=== PATIENT | female | born 1940 | race Caucasian/White ===

== ENCOUNTER 2019-11-29 15:34 | Inpatient (IN) | payer MEDICARE, OTHER ==
[~2019-11-29] VITALS: Ht 175.3 cm; Wt 131.1 kg
[2019-11-29] VITALS (12 sets, daily range): BP systolic 119–145; BP diastolic 57–68
--- NOTE | 2019-11-29 15:47 | NUR ---
BIB [facility] (PATIENT FROM [facility]) FOR RAPID HEART RATE. TO ER BED 8, HOOKED TO TELEVISION ENGINEER, BP CUFF AND POX, NOTED WITH 156BPM ON A-FFIB W RVR. CHANGED TO HOSP GOWN, WARM BLANKET PROVIDED, PATIENT AAO x 0, RESP THERAPIST AT BEDSIDE. NOTED W TRACHEOSTOMY VENT DEPENDENT W SETTINGS OF AC 14, O2 40% PEEP 5, VT 500. NOTED W G-TUBE AND PEG TUBE. NOTED W BUE AND BLE EDEMA. NOTED WITH BUE PURPLE-RED DISCOLORATIONS AND BLE WOUNDS. DR CAN AT BEDSIDE Addendum: 11/29/19 at 1813 by GLYNN [facility] (PATIENT FROM [facility]) FOR RAPID HEART RATE. TO ER BED 8, HOOKED TO TELEVISION ENGINEER, BP CUFF AND POX, NOTED WITH 156BPM ON V-TACH. CHANGED TO HOSP GOWN, WARM BLANKET PROVIDED, PATIENT AAO x 0, RESP THERAPIST AT BEDSIDE. NOTED W TRACHEOSTOMY VENT DEPENDENT W SETTINGS OF AC 14, O2 40% PEEP 5, VT 500. NOTED W G-TUBE AND GARRETT CATHETER. NOTED W BUE AND BLE EDEMA. NOTED WITH BUE PURPLE-RED DISCOLORATIONS AND BLE WOUNDS. DR CAN AT BEDSIDE
--- NOTE | 2019-11-29 15:48 | NUR ---
PATIENT ON DIALYSIS DURING MON-MON-MON. DIDN'T HAVE DIALYSIS FOR TODAY.
--- NOTE | 2019-11-29 15:54 | NUR ---
RT NOTE PT PLACED ON VENT PER MD ORDER. PT HAS A SHILEY 6 DCT CUFFED TRACH TUBE IN PLACE. CUFF INFLATED. TRACH TUBE MIDLINE AND SECURE. VENTILATOR SETTINGS ENDORSED BY TRANSPORT RT. ALARMS SET PER PROTOCOL AND AUDIBLE. VENT PLUGGED IN TO RED OUTLET. AMBU BAG AND BACK UP TRACH AT BED SIDE. NO DISTRESS NOTED AT MOMENT. Addendum: 11/29/19 at 1557 by AMIE ANDRES RT Amended: Links added.
--- NOTE | 2019-11-29 16:16 | NUR ---
FOREIGN LANGUAGES DEPARTMENT CHAIR AT BEDSIDE FOR RVR
--- NOTE | 2019-11-29 16:21 | NUR ---
INOCENCIA NEWSOME AT BEDSIDE FOR EKG
[2019-11-29 16:22] LABS: BASOPHILS # (AUTO) 0.1 /CMM (0.0-0.2); BASOPHILS % (AUTO) 0.6 % (0.0-2.0); EOSINOPHILS % (AUTO) 2.9 % (0.0-6.0); HEMATOCRIT 31 % (33-45); HEMOGLOBIN 9.8 g/dL (11.5-14.8); LYMPHOCYTES # (AUTO) 0.6 /CMM (0.8-4.8); LYMPHOCYTES % (AUTO) 4.1 % (20.0-44.0); MEAN CORPUSCULAR HGB CONC 32 g/dl (31.0-36.0); MEAN CORPUSCULAR VOLUME 93 fL (82-100); MONOCYTES # (AUTO) 1.4 /CMM (0.1-1.30); MONOCYTES % (AUTO) 9.7 % (2.0-12.0); NEUTROPHILS # (AUTO) 11.7 /CMM (1.8-8.9); NEUTROPHILS % (AUTO) 82.7 % (43.0-81.0); PLATELET COUNT (AUTO) 260 /CMM (150-450); RED BLOOD CELL COUNT(AUTO) 3.29 MIL/uL (4.0-5.2); WHITE BLOOD COUNT (AUTO) 14.2 K/uL (4.3-11.0)
[2019-11-29] MEDS ORDERED: ZINC1CAP2 GT (16:23)
[2019-11-29] MEDS ORDERED: LINA5TAB GT (16:23)
[2019-11-29] MEDS ORDERED: CLOT15CR27 TP (16:23)
[2019-11-29] MEDS ORDERED: HYDR-4384 GT (16:23)
[2019-11-29] MEDS ORDERED: LANO3.5O3 EACHEYE (16:23)
[2019-11-29] MEDS ORDERED: FOLI0.8T23 GT (16:23)
[2019-11-29] MEDS ORDERED: MUPI22OI2 TP (16:23)
[2019-11-29] MEDS ORDERED: PANT40TA2 GT (16:23)
[2019-11-29] MEDS ORDERED: EPOE4000 SQ (16:23)
[2019-11-29] MEDS ORDERED: DOCU50LI GT (16:23)
[2019-11-29] MEDS ORDERED: INSU100V11 SQ (16:23)
[2019-11-29] MEDS ORDERED: NYST15PO4 TP (16:23)
[2019-11-29] MEDS ORDERED: METO-295 GT (16:23)
[2019-11-29] MEDS ORDERED: ACET650S26 GT ×2 (16:23)
[2019-11-29] MEDS ORDERED: METO25TA20 GT (16:23)
[2019-11-29] MEDS ORDERED: ARGI1POW13 GT (16:23)
[2019-11-29] MEDS ORDERED: MIDO10TA GT (16:23)
[2019-11-29] MEDS ORDERED: ASCO-352 GT (16:23)
[2019-11-29] MEDS ORDERED: NUT.237L67 GT (16:23)
[2019-11-29] MEDS ORDERED: INSU100V7 SQ (16:23)
[2019-11-29] MEDS ORDERED: AMIN30LI27 GT (16:23)
[2019-11-29] MEDS ORDERED: LEVO150T8 GT (16:23)
[2019-11-29] MEDS ORDERED: BISA10SU11 RC (16:23)
[2019-11-29] MEDS ORDERED: SILD20TA2 GT (16:23)
[2019-11-29] MEDS ORDERED: CHLO473M5 MM (16:23)
[2019-11-29] MEDS ORDERED: AMIO400T5 GT (16:23)
[2019-11-29] MEDS ORDERED: DILTIAZEM HCL 25 MG IV ONE ×2 (16:24→17:38)
--- NOTE | 2019-11-29 16:24 | NUR ---
RECEIVED VERBAL ORDER OF CARDIZEM 10MG IVP. CARRIED OUT
[2019-11-29] MEDS ORDERED: AMIODARONE 150 MG in IV D5W 100 ML IV ONE (16:30)
[2019-11-29] MEDS ORDERED: DILTIAZEM HCL 50 MG IV IV ONE ×2 (16:30→17:00)
--- NOTE | 2019-11-29 16:30 | NUR ---
FRAME CLEANER AT BEDSIDE FOR 2ND EKG
[2019-11-29 16:40] LABS: CALCIUM, SERUM 10.5 mg/dL (8.5-10.1); CARBON DIOXIDE 26 mmol/L (21-32); CHLORIDE 99 mmol/L (98-107); GLUCOSE 175 mg/dL (74-106); POTASSIUM 3.5 mmol/L (3.5-5.1); SODIUM SERUM 137 mmol/L (136-145); UREA NITROGEN, BLOOD 49 mg/dL (7-18)
[2019-11-29 16:52] LABS: ALANINE AMINOTRANSFERASE 11 U/L (12-78); ALBUMIN 2.1 g/dL (3.4-5.0); ALKALINE PHOSPHATASE 152 U/L (46-116); ASPARTATE AMINOTRANSFERASE 22 U/L (15-37); B-TYPE NATRIURETIC PEPTIDE 26660 PG/ML (0-125); BILIRUBIN,DIRECT 0.3 mg/dL (0.0-0.2); BILIRUBIN,TOTAL 0.6 mg/dL (0.2-1.0); TOTAL PROTEIN, SERUM 7.2 g/dL (6.4-8.2)
[2019-11-29] MEDS: AMIODARONE 450 MG in IV D5W 250 ML IV PRN (17:00)
--- NOTE | 2019-11-29 17:18 | NUR ---
PAGED EPIC NURSERY MANAGER.
--- NOTE | 2019-11-29 17:28 | NUR ---
CALLED NURSING SUP FOR ICU BED.
--- NOTE | 2019-11-29 17:33 | NUR ---
NURSING SUP GAVE ICU BED 261.
--- NOTE | 2019-11-29 18:16 | NUR ---
REPORT GIVEN TO LARY JERONIMO OF ICU
[2019-11-29] MEDS ORDERED: FUROSEMIDE 40 MG/4 ML VIAL IV ONE (18:30)
[2019-11-29] MEDS: NORMAL SALINE FLUSH 10 ML SYR IV SCH (19:14)
--- NOTE | 2019-11-29 19:30 | NUR ---
BUSINESS SOLUTION ANALYST RCD PT W/DX VTACH. RESP FAIL. PT IS NON RESPONSIVE. AFIB ON MONITOR W/AMIODARONE DRIP INFUSING 1 MG/MIN. SHILEY 6 W/VENT SETTINGS AC 14 500 405 +5. RENDERED ORAL CARE. GTUBE CLAMPED. GARRETT CAT DRAINING CLOUDY YELLOW URINE. PENDING ICU ADMISSION AND SKIN ASSESSMENT. CONTINUE TO MONITOR.
[2019-11-29] MEDS ORDERED: ACETAMINOPHEN 650 MG/20.3 ML UDC GT PRN (20:30)
[2019-11-29] MEDS ORDERED: BISACODYL SUPP (10 MG) 10 MG/SUPP.RECT SUPP.RECT RC PRN (20:30)
[2019-11-29] MEDS ORDERED: DEXTROSE 50%-WATER 50 ML DISP.SYRIN IV PRN (20:30)
--- NOTE | 2019-11-29 21:10 | NUR ---
MEDIA OPERATOR RCD CALL FROM [facility] APPLIED TECHNOLOGIST UPDATED ON PLAN OF CARE; EKG TO BE DONE AFTER AMIODARONE INFUSION IS COMPLETE.
[2019-11-29] MEDS: LANOLIN/MIN OIL/PETROLAT,WHT 3.5 GM TUBE EACHEYE SCH (21:32)
[2019-11-29] MEDS: CHLORHEXIDINE GLUCONATE 15 ML UDC MM SCH (21:32)
[2019-11-29] MEDS: METOPROLOL TARTRATE 25 MG TABLET GT SCH (21:32)
--- NOTE | 2019-11-29 22:00 | NUR ---
POSTAL SERVICE MAIL PROCESSOR RCD CALL FROM PTS DAUGHTER BRANDY, UPDATED ON PLAN OF CARE.
[2019-11-29] MEDS: INSULIN GLARGINE, 100 UNIT/ML CARTRIDGE SQ SCH (22:32)
--- NOTE | 2019-11-29 23:20 | NUR ---
SAWMILL SUPERVISOR PENDING 2199 TROPONIN PER ARNOLD GOAL UMPIRE PT IS A HARD STICK AND SHE WILL SEND SOMEONE ELSE.
[2019-11-29] MEDS: INSULIN REGULAR, HUMAN 100 UNIT/ML 3 ML VIAL SQ PRN (23:30)
[2019-11-30] VITALS (53 sets, daily range): BP systolic 100–151; BP diastolic 45–78
[2019-11-30] MEDS: BLOOD SUGAR DIAGNOSTIC 1 EACH STRIP IN SCH ×4 (00:06→17:29)
[2019-11-30] MEDS ORDERED: AMIODARONE 150 MG/3 ML VIAL IV ONE (00:31)
[2019-11-30] MEDS: AMIODARONE 450 MG in IV D5W 250 ML IV PRN (01:33)
[2019-11-30 04:49] LABS: BASOPHILS # (AUTO) 0.1 /CMM (0.0-0.2); BASOPHILS % (AUTO) 0.7 % (0.0-2.0); HEMATOCRIT 28 % (33-45); LYMPHOCYTES # (AUTO) 0.9 /CMM (0.8-4.8); LYMPHOCYTES % (AUTO) 7.8 % (20.0-44.0); MEAN CORPUSCULAR HGB CONC 33 g/dl (31.0-36.0); MEAN CORPUSCULAR VOLUME 92 fL (82-100); MONOCYTES # (AUTO) 1.2 /CMM (0.1-1.30); MONOCYTES % (AUTO) 10.8 % (2.0-12.0); NEUTROPHILS # (AUTO) 8.7 /CMM (1.8-8.9); NEUTROPHILS % (AUTO) 77.7 % (43.0-81.0); PLATELET COUNT (AUTO) 267 /CMM (150-450); RED BLOOD CELL COUNT(AUTO) 3.01 MIL/uL (4.0-5.2); WHITE BLOOD COUNT (AUTO) 11.2 K/uL (4.3-11.0)
[2019-11-30 05:09] LABS: ALANINE AMINOTRANSFERASE 13 U/L (12-78); ALBUMIN 1.9 g/dL (3.4-5.0); ALKALINE PHOSPHATASE 130 U/L (46-116); ASPARTATE AMINOTRANSFERASE 21 U/L (15-37); BILIRUBIN,TOTAL 0.5 mg/dL (0.2-1.0); CARBON DIOXIDE 28 mmol/L (21-32); CHLORIDE 98 mmol/L (98-107); GLUCOSE 120 mg/dL (74-106); MAGNESIUM 2.4 mg/dL (1.8-2.4); PHOSPHORUS 3.5 mg/dL (2.5-4.9); POTASSIUM 3.2 mmol/L (3.5-5.1); SODIUM SERUM 135 mmol/L (136-145); TOTAL PROTEIN, SERUM 6.7 g/dL (6.4-8.2); UREA NITROGEN, BLOOD 50 mg/dL (7-18)
[2019-11-30] MEDS: METOPROLOL TARTRATE 25 MG TABLET GT SCH ×3 (05:47→21:03)
[2019-11-30] MEDS: NORMAL SALINE FLUSH 10 ML SYR IV SCH (05:47)
[2019-11-30] MEDS: ASCORBIC ACID 500 MG TABLET GT SCH ×2 (08:12→16:56)
[2019-11-30] MEDS: VIT B CMPLX 3/FA/VIT C/BIOTIN 1 TAB TABLET GT SCH (08:12)
[2019-11-30] MEDS: CHLORHEXIDINE GLUCONATE 15 ML UDC MM SCH ×2 (08:12→21:03)
[2019-11-30] MEDS: ACETAMINOPHEN 650 MG/20.3 ML UDC GT SCH (08:12)
[2019-11-30] MEDS: DOCUSATE SODIUM LIQ 100 MG/10 ML UDC GT SCH ×2 (08:12→16:56)
[2019-11-30] MEDS: METOCLOPRAMIDE HCL 10 MG TABLET GT SCH ×3 (08:13→16:56)
[2019-11-30] MEDS: LINAGLIPTIN 5 MG TABLET GT SCH (08:13)
[2019-11-30] MEDS: LEVOTHYROXINE SODIUM 75 MCG TABLET GT SCH (08:13)
[2019-11-30] MEDS: MIDODRINE HCL (5MG) 5 MG TABLET GT SCH (08:14)
[2019-11-30] MEDS: PROSOURCE / PROSTAT (PYXIS) 30 ML UDC GT SCH ×2 (08:14→16:57)
[2019-11-30] MEDS: INSULIN GLARGINE, 100 UNIT/ML CARTRIDGE SQ SCH ×2 (08:15→21:21)
--- NOTE | 2019-11-30 08:34 | NUR ---
received pt from production shift supervisor, alert, does not follow commands, non communicative, does not track, A fib controlled, on amio gtt at 0.5mg, on the vent, trach, sat well, general pitting edema throughout, f/c low output, HD patient, HD today, GT clamped, v/s stable, no pain, pt turned and repositioned.
[2019-11-30] MEDS ORDERED: PANTOPRAZOLE 40 MG VIAL IV SCH (09:00)
[2019-11-30] MEDS ORDERED: CLOTRIMAZOLE 1% CREAM 24 GM TUBE TP SCH (09:00)
[2019-11-30] MEDS ORDERED: ALBUMIN 25% 25 GM in PREMIX 1 EA IV ONE (09:30)
[2019-11-30] MEDS: DIGOXIN INJ 0.5 MG/2 ML AMPUL IV SCH ×3 (09:56→21:32)
[2019-11-30] MEDS: APIXABAN 2.5 MG TABLET PO SCH ×2 (09:56→16:57)
[2019-11-30] MEDS ORDERED: AMIODARONE 450 MG in IV D5W 250 ML IV PRN (10:30)
[2019-11-30] MEDS: SOD FERRIC GLUC 125 MG in IV NS 0.9% 100 ML IV SCH (14:05)
--- NOTE | 2019-11-30 16:36 | NUR ---
pt is resting in the bed, alert, does not follow commands, does not track, afib controlled, off of amio since 10:00, on the vent sat well, started on tube feeding, f/c low output, HD today cleaning only, v/s stable, no pain, pt cleaned, changed and repositioned.
--- NOTE | 2019-11-30 19:30 | NUR ---
RN OPENING NOTES The client is resting in bed, obtunded. unable to follow simple command, responds to light pain, moves head. Client is ventilator support, settings as charted. G tube noted. Client is on external telemonitor, a-fib controlled, HR 70'S. The client has no s/s of distress nor pain. The client presents skin bruising on all extremities. Comfort measures are being provided at this time, safety mechanisms in place. Will continue to monitor.
[2019-11-30] MEDS ORDERED: EPOETIN ALFA (4000 UNIT) 4,000 UNIT/ML VIAL SQ SCH (20:30)
[2019-11-30] MEDS: LANOLIN/MIN OIL/PETROLAT,WHT 3.5 GM TUBE EACHEYE SCH (22:19)
[2019-12-01] VITALS (24 sets, daily range): BP systolic 117–154; BP diastolic 42–84
--- NOTE | 2019-12-01 | NUR ---
no change of condition at this time. The client remains stable at this time. Will continue to monitor.
[2019-12-01] MEDS: BLOOD SUGAR DIAGNOSTIC 1 EACH STRIP IN SCH ×5 (00:02→23:18)
--- NOTE | 2019-12-01 03:48 | NUR ---
The client remains stable, no change of condition at this time. VS WNL, will continue to monitor.
--- NOTE | 2019-12-01 03:58 | NUR ---
PATIENT RECEIVED ON TRACH TO VENT WITH SETTINGS OF AC 14, 500 Vt, 40%, +5. SUCTIONED FOR MINIMAL, THICK, YELLOW-CREAM SECRETIONS. AMBU BAG AT BEDSIDE. VENT ALARM AUDIBLE AND VISIBLE. VENT PLUGGED INTO RED OUTLET. Addendum: 12/01/19 at 0400 by RENETTA WRIGHT RT Amended: Links added.
[2019-12-01] MEDS: METOPROLOL TARTRATE 25 MG TABLET GT SCH ×3 (05:29→20:45)
[2019-12-01] MEDS: INSULIN REGULAR, HUMAN 100 UNIT/ML 3 ML VIAL SQ PRN ×4 (06:18→23:21)
--- NOTE | 2019-12-01 07:02 | NUR ---
RN CLOSING NOTES No change of condition during the shift. The client remains in stable conditions. VS WNL. No s/s of distress nor pain at this time, the client denies pain. All safety measures in place, comfort measures provided.
[2019-12-01] MEDS: CLOTRIMAZOLE 1% CREAM 24 GM TUBE TP SCH (08:19)
[2019-12-01] MEDS: DOCUSATE SODIUM LIQ 100 MG/10 ML UDC GT SCH ×2 (08:19→16:07)
[2019-12-01] MEDS: ACETAMINOPHEN 650 MG/20.3 ML UDC GT SCH (08:19)
[2019-12-01] MEDS: CHLORHEXIDINE GLUCONATE 15 ML UDC MM SCH ×2 (08:19→20:45)
[2019-12-01] MEDS: LINAGLIPTIN 5 MG TABLET GT SCH (08:20)
[2019-12-01] MEDS: LEVOTHYROXINE SODIUM 75 MCG TABLET GT SCH (08:20)
[2019-12-01] MEDS: METOCLOPRAMIDE HCL 10 MG TABLET GT SCH ×3 (08:20→16:07)
[2019-12-01] MEDS: ASCORBIC ACID 500 MG TABLET GT SCH ×2 (08:20→16:07)
[2019-12-01] MEDS: APIXABAN 2.5 MG TABLET PO SCH ×2 (08:21→16:18)
[2019-12-01] MEDS: INSULIN GLARGINE, 100 UNIT/ML CARTRIDGE SQ SCH ×2 (08:21→20:46)
[2019-12-01] MEDS: VIT B CMPLX 3/FA/VIT C/BIOTIN 1 TAB TABLET GT SCH (08:24)
[2019-12-01] MEDS: MIDODRINE HCL (5MG) 5 MG TABLET GT SCH (08:41)
[2019-12-01] MEDS: PROSOURCE / PROSTAT (PYXIS) 30 ML UDC GT SCH ×2 (09:57→16:07)
[2019-12-01] MEDS: NEPRO 1,000 ML BOTTLE GT PRN (09:58)
[2019-12-01] MEDS ORDERED: SOD FERRIC GLUC 125 MG in IV NS 0.9% 100 ML IV SCH (14:00)
[2019-12-01] MEDS: SOD FERRIC GLUC 125 MG in IV NS 0.9% 100 ML IV SCH (14:30)
[2019-12-01] MEDS: LANOLIN/MIN OIL/PETROLAT,WHT 3.5 GM TUBE EACHEYE SCH (22:58)
[2019-12-02] VITALS (25 sets, daily range): BP systolic 132–172; BP diastolic 49–87
[2019-12-02 05:31] LABS: BASOPHILS # (AUTO) 0.1 /CMM (0.0-0.2); BASOPHILS % (AUTO) 0.4 % (0.0-2.0); EOSINOPHILS % (AUTO) 3.6 % (0.0-6.0); HEMATOCRIT 28 % (33-45); LYMPHOCYTES # (AUTO) 1.2 /CMM (0.8-4.8); LYMPHOCYTES % (AUTO) 7.3 % (20.0-44.0); MEAN CORPUSCULAR HGB CONC 32 g/dl (31.0-36.0); MEAN CORPUSCULAR VOLUME 92 fL (82-100); MONOCYTES % (AUTO) 12.4 % (2.0-12.0); NEUTROPHILS # (AUTO) 12.5 /CMM (1.8-8.9); NEUTROPHILS % (AUTO) 76.3 % (43.0-81.0); PLATELET COUNT (AUTO) 297 /CMM (150-450); RED BLOOD CELL COUNT(AUTO) 3.03 MIL/uL (4.0-5.2); WHITE BLOOD COUNT (AUTO) 16.4 K/uL (4.3-11.0)
[2019-12-02 05:54] LABS: CALCIUM, SERUM 9.7 mg/dL (8.5-10.1); CARBON DIOXIDE 28 mmol/L (21-32); CHLORIDE 100 mmol/L (98-107); CREATININE 2.2 mg/dL (0.6-1.3); GLUCOSE 145 mg/dL (74-106); POTASSIUM 3.2 mmol/L (3.5-5.1); SODIUM SERUM 137 mmol/L (136-145); UREA NITROGEN, BLOOD 52 mg/dL (7-18)
[2019-12-02] MEDS: METOPROLOL TARTRATE 25 MG TABLET GT SCH ×3 (06:13→21:56)
[2019-12-02] MEDS: BLOOD SUGAR DIAGNOSTIC 1 EACH STRIP IN SCH ×4 (06:13→21:59)
[2019-12-02] MEDS: NEPRO 1,000 ML BOTTLE GT PRN (06:14)
[2019-12-02] MEDS: INSULIN REGULAR, HUMAN 100 UNIT/ML 3 ML VIAL SQ PRN ×3 (06:19→17:57)
--- NOTE | 2019-12-02 06:30 | NUR ---
RN NOTES NO SIGNIFICANT CHANGES THROUGHOUT THE SHIFT. AFEBRILE. REMAINED ACC. JUNCTIONAL, TRACH SHILEY 6 AND VENT SETTING AC 16 TV 500 FIO2 40% PEEP 5 TOLERATED WELL. SATURATION >92%. VSS. IV SITE ON RIGHT WRIST INTACT AND PATENT. ALL DUE MEDICINE ADMINISTERED ORDERED. GARRETT CATH DRAINED WITH YELLOW COLOR URINE. SKIN CARE PROVIDED. KEPT PT CLEAN AND DRY. TX DONE ORDERED. TURNED AND REPOSITIONED Q2H AND PRN. WILL ENDORSED CONTINUITY OF CARE TO AM NURSE.
--- NOTE | 2019-12-02 08:00 | NUR ---
RN OPENING NOTES RECEIVED PT IN BED OPENS EYES BUT NOT TRACK. REMAINS ACC. JUNCTIONAL, TRACH SHILEY 6 AND VENT SETTING AC 16 TV 500 FIO2 40% PEEP 5 TOLERATED WELL. SATURATION >92%. PT HAS IV SITE ON RIGHT WRIST#20 INTACT AND PATENT, AND NO SIGN OF INFILTRATION NOTED. PT HAS GT TUBE OF NEPHRO @65 ML/HR. SAFETY MEASUREMENTS ARE IMPLEMENTED BY HOSPITAL POLICY. BED IS IN THE LOWEST POSITION AND SIDE RAILS ARE UP.CALL LIGHT WITH THE REACH WILL CONTINUITY OF CARE TO
[2019-12-02] MEDS: CHLORHEXIDINE GLUCONATE 15 ML UDC MM SCH ×2 (08:47→21:54)
[2019-12-02] MEDS: DOCUSATE SODIUM LIQ 100 MG/10 ML UDC GT SCH ×2 (08:47→17:28)
[2019-12-02] MEDS: APIXABAN 2.5 MG TABLET PO SCH ×2 (08:47→17:32)
[2019-12-02] MEDS: ACETAMINOPHEN 650 MG/20.3 ML UDC GT SCH (08:47)
[2019-12-02] MEDS: LINAGLIPTIN 5 MG TABLET GT SCH (08:48)
[2019-12-02] MEDS: VIT B CMPLX 3/FA/VIT C/BIOTIN 1 TAB TABLET GT SCH (08:48)
[2019-12-02] MEDS: ASCORBIC ACID 500 MG TABLET GT SCH ×2 (08:48→17:28)
[2019-12-02] MEDS: LEVOTHYROXINE SODIUM 75 MCG TABLET GT SCH (08:48)
[2019-12-02] MEDS: METOCLOPRAMIDE HCL 10 MG TABLET GT SCH ×3 (08:49→17:28)
[2019-12-02] MEDS: MIDODRINE HCL (5MG) 5 MG TABLET GT SCH (08:49)
--- NOTE | 2019-12-02 09:00 | NUR ---
RN NOTE INSULIN GLARGINE WAS DUE OF 16 UNIT CHECKED BLOOD SUGAR IS 162 K TO PROCEED
[2019-12-02] MEDS: CLOTRIMAZOLE 1% CREAM 24 GM TUBE TP SCH (09:13)
[2019-12-02] MEDS: PROSOURCE / PROSTAT (PYXIS) 30 ML UDC GT SCH ×2 (09:19→17:43)
[2019-12-02] MEDS: INSULIN GLARGINE, 100 UNIT/ML CARTRIDGE SQ SCH ×2 (09:26→22:20)
--- NOTE | 2019-12-02 09:30 | NUR ---
RN NOTE HOLD MEDS FOR 9 AM DUE TO DIALYSIS
[2019-12-02] MEDS ORDERED: POTASSIUM CHLORIDE 20 MEQ POWDER PACKET NG SCH (10:30)
--- NOTE | 2019-12-02 11:53 | NUR ---
RN NOTE AHMAD DIALYSIS NURSE AT THE BED SIDE
--- NOTE | 2019-12-02 14:00 | NUR ---
RN NOTES NO OUT JUST ELECTROLYTE BALANCE
[2019-12-02] MEDS: SOD FERRIC GLUC 125 MG in IV NS 0.9% 100 ML IV SCH (14:47)
[2019-12-02] MEDS: CADEXOMER IODINE 40 GM TUBE TP SCH (17:28)
--- NOTE | 2019-12-02 19:06 | NUR ---
RN CLOSING NOTES PT IN BED OPENS EYES BUT NOT TRACK. REMAINS ACC. JUNCTIONAL, TRACH SHILEY 6 AND VENT SETTING AC 16 TV 500 FIO2 40% PEEP 5 TOLERATED WELL. SATURATION >96%. PT HAS IV SITE ON RIGHT WRIST#20 INTACT AND PATENT, AND NO SIGN OF INFILTRATION NOTED. PT HAS GT TUBE OF NEPHRO @65 ML/HR. SAFETY MEASUREMENTS ARE IMPLEMENTED BY HOSPITAL POLICY. BED IS IN THE LOWEST POSITION AND SIDE RAILS ARE UP.CALL LIGHT WITH THE REACH WILL ENDORSE TO PATIENT REGISTRATION SPECIALIST DAMEON
--- NOTE | 2019-12-02 19:30 | NUR ---
RN NOTES RECEIVED PATIENT ON BED ASLEEP, RESPONSIVE TO STIMULI WITH TRACH CONNECTED TO VENT WITH AC MODE FIO2 40% TOLERATED WELL SATURATION 100%. NO ACUTE RESPIRATORY DISTRESS. AFIB WITH OCCASIONAL PVC'S ON TELE MONITOR. SUCTION WITH THIN YELLOW THIN SECRETION. GTF TOLERATED WELL. HOB ELEVATED. IV SITE INTACT AND PATENT. GARRETT CATH PATENT.. TURNED AND KEPT CLEAN AND DRY. WILL CLOSELY MONITOR.
--- NOTE | 2019-12-02 21:36 | NUR ---
RECEIVED PT TRACH SHLY 6 ON [facility] VENT. NO RESP DISTRESS NOTED. PT TOLERATING SETTINGS. SX'D MOD AMT OF THICK YELLOW SECRETIONS. TRACH SECURE, CUFF CHECKED. AMBU BAG AT BEDSIDE, SPARE TRACH AT BEDSIDE. VENT ALARMS SET AND AUDIBLE. VENT PLUGGED INTO RED OUTLET. WILL CONTINUE TO MONITOR. Addendum: 12/02/19 at 2138 by AISSATOU WELLS RT Amended: Links added.
[2019-12-02] MEDS: LANOLIN/MIN OIL/PETROLAT,WHT 3.5 GM TUBE EACHEYE SCH (21:56)
[2019-12-03] VITALS (21 sets, daily range): BP systolic 138–187; BP diastolic 55–91
[2019-12-03] MEDS: NEPRO 1,000 ML BOTTLE GT PRN ×2 (00:07→19:42)
[2019-12-03 04:50] LABS: BASOPHILS # (AUTO) 0.1 /CMM (0.0-0.2); BASOPHILS % (AUTO) 0.6 % (0.0-2.0); EOSINOPHILS % (AUTO) 3.2 % (0.0-6.0); HEMATOCRIT 25 % (33-45); HEMOGLOBIN 7.9 g/dL (11.5-14.8); LYMPHOCYTES # (AUTO) 0.9 /CMM (0.8-4.8); LYMPHOCYTES % (AUTO) 4.7 % (20.0-44.0); MEAN CORPUSCULAR HGB CONC 32 g/dl (31.0-36.0); MEAN CORPUSCULAR VOLUME 94 fL (82-100); MONOCYTES # (AUTO) 2.2 /CMM (0.1-1.30); MONOCYTES % (AUTO) 12.2 % (2.0-12.0); NEUTROPHILS # (AUTO) 14.5 /CMM (1.8-8.9); NEUTROPHILS % (AUTO) 79.3 % (43.0-81.0); PLATELET COUNT (AUTO) 285 /CMM (150-450); RED BLOOD CELL COUNT(AUTO) 2.66 MIL/uL (4.0-5.2); WHITE BLOOD COUNT (AUTO) 18.2 K/uL (4.3-11.0)
[2019-12-03 04:57] LABS: CARBON DIOXIDE 29 mmol/L (21-32); CHLORIDE 101 mmol/L (98-107); CREATININE 1.9 mg/dL (0.6-1.3); GLUCOSE 158 mg/dL (74-106); POTASSIUM 3.7 mmol/L (3.5-5.1); SODIUM SERUM 139 mmol/L (136-145); UREA NITROGEN, BLOOD 49 mg/dL (7-18)
[2019-12-03] MEDS: METOPROLOL TARTRATE 25 MG TABLET GT SCH ×3 (06:01→17:24)
[2019-12-03] MEDS: BLOOD SUGAR DIAGNOSTIC 1 EACH STRIP IN SCH ×3 (06:11→17:34)
[2019-12-03] MEDS: INSULIN REGULAR, HUMAN 100 UNIT/ML 3 ML VIAL SQ PRN ×3 (06:12→17:35)
--- NOTE | 2019-12-03 07:00 | NUR ---
RN NOTES PATIENT IS STABLE NO SIGNIFICANT CHANGES THROUGHOUT THE SHIFT. AFEBRILE. TRACH AND VENT SETTING TOLERATED WELL. REMAINED AFIB WITH OCCT'L PVC'S. GTF TOLERATED WELL WITH HOB ELEVATED. INCONTINENT CARE RENDERED. TURNED AND REPOSITION Q2H AND PRN. SKIN CARE PROVIDED. TX. DONE ORDERED. KEPT PT CLEAN AND DRY. ENDORSED CONTINUITY OF CARE TO AM NURSE.
--- NOTE | 2019-12-03 07:15 | NUR ---
MILK TANKER DRIVER NOTES RECEIVED PATIENT IN BED ASLEEP. RESPONSIVE TO VERBAL AND TACTILE STIMULI. OPENS EYES. HOB ELEVATED. ON MECHANICAL VENTILATION AC:14 TV: 800 FIO2: 40% PEEP:5 MICHELLE WELL. SHILEY # 6 INTACT. GT INTACT AND PATENT MICHELLE NEPRO AT 65ML/HR. GARRETT CATHETER INTACT AND PATENT DRAINING URINE VIA BEDSIDE. BED IN LOWEST POSITION, LOCKED. BED ALARM ON. FREQUENT VISUAL CHECK DONE.
[2019-12-03] MEDS: LEVOTHYROXINE SODIUM 75 MCG TABLET GT SCH (07:30)
--- NOTE | 2019-12-03 08:49 | NUR ---
HIGH SCHOOL GUIDANCE COUNSELOR NOTES HELD MIDODRINE B/P 161/59.
[2019-12-03] MEDS: MIDODRINE HCL (5MG) 5 MG TABLET GT SCH (09:00)
[2019-12-03] MEDS: ACETAMINOPHEN 650 MG/20.3 ML UDC GT SCH (09:01)
[2019-12-03] MEDS: METOCLOPRAMIDE HCL 10 MG TABLET GT SCH ×3 (09:01→17:20)
[2019-12-03] MEDS: CHLORHEXIDINE GLUCONATE 15 ML UDC MM SCH ×2 (09:01→22:05)
[2019-12-03] MEDS: DOCUSATE SODIUM LIQ 100 MG/10 ML UDC GT SCH ×2 (09:01→17:20)
[2019-12-03] MEDS: VIT B CMPLX 3/FA/VIT C/BIOTIN 1 TAB TABLET GT SCH (09:05)
[2019-12-03] MEDS: LINAGLIPTIN 5 MG TABLET GT SCH (09:05)
[2019-12-03] MEDS: PROSOURCE / PROSTAT (PYXIS) 30 ML UDC GT SCH ×2 (09:06→17:23)
[2019-12-03] MEDS: ASCORBIC ACID 500 MG TABLET GT SCH ×2 (09:11→17:20)
[2019-12-03] MEDS: APIXABAN 2.5 MG TABLET PO SCH ×2 (09:13→17:25)
[2019-12-03] MEDS: CADEXOMER IODINE 40 GM TUBE TP SCH (09:14)
[2019-12-03] MEDS: CLOTRIMAZOLE 1% CREAM 24 GM TUBE TP SCH (09:14)
[2019-12-03] MEDS: INSULIN GLARGINE, 100 UNIT/ML CARTRIDGE SQ SCH ×2 (09:15→22:06)
[2019-12-03] MEDS: HYDROCODONE/APAP 5/325MG TABLET GT PRN ×2 (10:16→17:37)
--- NOTE | 2019-12-03 12:39 | NUR ---
AIRPLANE WOODWORKER NOTES PATIENT SEEN BY DR. ESPINAL VIA TELEHEALTH.
[2019-12-03] MEDS: SOD FERRIC GLUC 125 MG in IV NS 0.9% 100 ML IV SCH (14:51)
--- NOTE | 2019-12-03 18:50 | NUR ---
SVP DIGITAL AD SALES NOTES PATIENT TRANSFERRED TO MS/TELE UNIT FOR LOWER LEVEL OF CARE PER MD. PATIENT TRANSFERRED VIA ACLS PROTOCOL. ORIENTED PATIENT TO ROOM, UNIT AND CALL LIGHT. KVNG (DTR) AWARE OF TRANSFER. PATIENT RESTING COMFORTABLY IN BED, WITH EYE TRACKING OBSERVED. HOB ELEVATED. REMAIN ON MECHANICAL VENTILATION AC:14 TV: 800 GIO2: 40% PEEP:5 MICHELLE WELL. SHILEY # 6 INTACT. SUCTIONED PATIENT MICHELLE WELL. RIGHT UPPER CHEST HD CATH INTACT WITH DRESSING INTACT. GT INTACT AND PATENT MICHELLE NEPRO AT 45ML/HR. GARRETT CATHETER INTACT AND PATENT DRAINING PARK COLORED URINE WITH SEDIMENTS VIA BEDSIDE. BED IN LOWEST POSITION, LOCKED. BED ALARM ON. IN NO APPARENT DISTRESS.
--- NOTE | 2019-12-03 18:51 | NUR ---
RECEIVED PATIENT FROM KANDACE HURTADO FROM ICU. PATIENT STABLE. NOT IN ANY FORM OF DISTRESS. NO SOB, ON MECHANICAL VENT. A/OX1, OPENS EYES, TRACKS. IV ACCESS INTACT AND PATENT. GTUBE IN PLACE, FEEDING TOLERATING WELL. GARRETT IN PLACE, CLOUDY URINE DRAINING. SITUATED PATIENT IN THE ROOM. BED IN LOW/LOCKED POSITION. SIDERAILSUP. BED ALARM ON. CALL LIGHT IN REACH. WILL ENDORSED TO NIGHT RN ACCORDINGLY.
--- NOTE | 2019-12-03 20:33 | NUR ---
MS/TELE/RN DURING INITIAL SHIFT ROUNDING, PATIENT WAS IN BED APPEAR SLEEPING, AROUSES EASILY, APPEAR COMFORTABLE, NO SIGNS OF DISTRESS NOTED, WITH TRACH WITH MECHANICAL VENTILATOR WORKING WELL, GT FEEDING INFUSING, BOTTLE WAS CHANGED, HOB ELEVATED, HOB ELEVATED, SUCTION WAS SET UP, MADE COMFORTABLE IN BED, WILL MONITOR.
[2019-12-03] MEDS: LANOLIN/MIN OIL/PETROLAT,WHT 3.5 GM TUBE EACHEYE SCH (22:12)
[2019-12-04] VITALS: BP 165/71
[2019-12-04] MEDS: BLOOD SUGAR DIAGNOSTIC 1 EACH STRIP IN SCH ×4 (01:22→17:41)
[2019-12-04] MEDS: INSULIN REGULAR, HUMAN 100 UNIT/ML 3 ML VIAL SQ PRN ×4 (01:25→17:44)
[2019-12-04] MEDS: METOPROLOL TARTRATE 25 MG TABLET GT SCH ×4 (01:30→17:46)
[2019-12-04 01:54] LABS: APPEARANCE,URINE CLOUDY (CLEAR); COLOR,URINE DARK YELLOW (YELLOW)
[2019-12-04 01:55] LABS: BILIRUBIN,URINE NEGATIVE (NEGATIVE); BLOOD, URINE 3+ Ery/uL (NEGATIVE); PROTEIN,URINE 2+ mg/dl (NEGATIVE); UGLUCOSE NEGATIVE (NEGATIVE)
[2019-12-04 01:56] LABS: KETONES,URINE NEGATIVE (NEGATIVE); LEUKOCYTE ESTERASE ,URINE 2+ (NEGATIVE); NITRITE, URINE NEGATIVE (NEGATIVE); UROBILINOGEN,URINE 0.2 EU/dL (0.2)
[2019-12-04 01:58] LABS: BACTERIA,URINE Moderate /HPF (None Seen); RBC,URINE TOO NUMEROUS TO COUN /HPF (0-2); SQUAMOUS EPITHELIAL CELL,UR Moderate /HPF (None Seen); WBC,URINE TOO NUMEROUS TO COUN /HPF (0-3); YEAST,URINE Few /HPF (None Seen)
[2019-12-04 04:00] VITALS: BP 161/63
--- NOTE | 2019-12-04 06:51 | NUR ---
MS/TELE/RN PATIENT IS SLEEPING, APPEAR COMFORTABLE, NO SIGNS OF DISTRESS NOTE, GT FEEDING INFUSING, NO RESIDUAL NOTED, HOB ELEVATED, MECH VENTILATOR WORKING WELL, ALL NEEDS ATTENDED AT THIS TIME, WILL CONTINUE TO MONITOR.
--- NOTE | 2019-12-04 07:23 | NUR ---
INSURANCE INSPECTOR OPENING NOTES BEDSIDE ENDORSEMENT DONE. PATIENT IS IN BED SLEEPING, OBTUNDED, ABLE TO OPEN EYES. RESPONSIVE TO TACTILE AND PAINFUL STIMULI. BREATHING EVEN AND UNLABORED, WITH CURRENT VENT SETTINGS: SHILEY 6, AC 14, TV 500, FIO2 40%, PEEP 5. ON TELEMONITORING, A-FIB IN THE MID 60'S WITHOUT CARDIAC DISTRESS NOTED. PERIPHERAL IV ON L HAND INTACT AND PATENT. ON GT FEEDING NEPRO AT 45ML/HR. GARRETT CATH INTACT AND DRAINING YELLOW-COLORED URINE. WITH HD PERMACATH ON RIGHT CHEST. SAFETY PRECAUTIONS IN PLACE: BED ON LOWEST AND LOCKED POSITION, SR UP X2, CALL LIGHT W/IN REACH. WILL CONTINUE TO MONITOR.
[2019-12-04] MEDS: LEVOTHYROXINE SODIUM 75 MCG TABLET GT SCH (07:58)
[2019-12-04 08:00] VITALS: BP 161/61
[2019-12-04] MEDS: ACETAMINOPHEN 650 MG/20.3 ML UDC GT SCH (08:19)
[2019-12-04] MEDS: ASCORBIC ACID 500 MG TABLET GT SCH ×2 (08:19→16:11)
[2019-12-04] MEDS: CHLORHEXIDINE GLUCONATE 15 ML UDC MM SCH ×2 (08:19→21:15)
[2019-12-04] MEDS: DOCUSATE SODIUM LIQ 100 MG/10 ML UDC GT SCH ×2 (08:19→16:09)
[2019-12-04] MEDS: APIXABAN 2.5 MG TABLET PO SCH ×2 (08:20→16:10)
[2019-12-04] MEDS: LINAGLIPTIN 5 MG TABLET GT SCH (08:20)
[2019-12-04] MEDS: VIT B CMPLX 3/FA/VIT C/BIOTIN 1 TAB TABLET GT SCH (08:20)
[2019-12-04] MEDS: METOCLOPRAMIDE HCL 10 MG TABLET GT SCH ×3 (08:21→16:11)
[2019-12-04] MEDS: MIDODRINE HCL (5MG) 5 MG TABLET GT SCH (08:21)
[2019-12-04] MEDS: PROSOURCE / PROSTAT (PYXIS) 30 ML UDC GT SCH ×2 (08:22→16:20)
[2019-12-04] MEDS: CLOTRIMAZOLE 1% CREAM 24 GM TUBE TP SCH (08:30)
[2019-12-04] MEDS: CADEXOMER IODINE 40 GM TUBE TP SCH (08:31)
[2019-12-04 08:56] LABS: BASOPHILS # (AUTO) 0.1 /CMM (0.0-0.2); BASOPHILS % (AUTO) 0.3 % (0.0-2.0); EOSINOPHILS % (AUTO) 0.9 % (0.0-6.0); HEMATOCRIT 27 % (33-45); HEMOGLOBIN 8.6 g/dL (11.5-14.8); LYMPHOCYTES # (AUTO) 0.6 /CMM (0.8-4.8); MEAN CORPUSCULAR HGB CONC 32 g/dl (31.0-36.0); MEAN CORPUSCULAR VOLUME 93 fL (82-100); MONOCYTES # (AUTO) 1.8 /CMM (0.1-1.30); MONOCYTES % (AUTO) 8.4 % (2.0-12.0); NEUTROPHILS # (AUTO) 18.4 /CMM (1.8-8.9); NEUTROPHILS % (AUTO) 87.4 % (43.0-81.0); PLATELET COUNT (AUTO) 326 /CMM (150-450); RED BLOOD CELL COUNT(AUTO) 2.84 MIL/uL (4.0-5.2)
[2019-12-04] MEDS: INSULIN GLARGINE, 100 UNIT/ML CARTRIDGE SQ SCH ×2 (09:03→21:39)
[2019-12-04 09:30] LABS: CALCIUM, SERUM 10.6 mg/dL (8.5-10.1); CARBON DIOXIDE 26 mmol/L (21-32); CHLORIDE 99 mmol/L (98-107); CREATININE 2.2 mg/dL (0.6-1.3); GLUCOSE 220 mg/dL (74-106); POTASSIUM 3.8 mmol/L (3.5-5.1); SODIUM SERUM 136 mmol/L (136-145); UREA NITROGEN, BLOOD 65 mg/dL (7-18)
[2019-12-04] MEDS ORDERED: LIDOCAINE 1%-EPI 1:100,000 20 ML VIAL TP ONE (11:00)
[2019-12-04] MEDS ORDERED: SILVER NITRATE APPLICATOR 1 EA BOX TP ONE (11:00)
[2019-12-04] MEDS ORDERED: VANCOMYCIN 1 GM in IV D5W 250ml IV ONE (11:00)
--- NOTE | 2019-12-04 11:24 | NUR ---
RN NOTES PATIENT WAS SEEN AND ASSESSED BY GEOFFREY Martin/ FABIÁN TO OBTAIN CONSENT FOR SERIAL DEBRIDEMENT OF SACRUM WOUND. TELEPHONE CONSENT OBTAINED FROM LEONILA NOVAK, , AT TEL NUMBER AND CONFIRMED BY ANOTHER RN (RACHNA). WILL CONTINUE TO MONITOR
[2019-12-04 12:00] VITALS: BP 148/64
--- NOTE | 2019-12-04 12:21 | NUR ---
RN NOTES PATIENT CURRENTLY ON HEMODIALYSIS, STARTED AT APPROXIMATELY 1100 PER DIALYSIS NURSE.
[2019-12-04] MEDS ORDERED: PIPERACILLIN /TAZOBACTAM 2.25 G in IV D5W 50 ML IV SCH (13:00)
--- NOTE | 2019-12-04 13:10 | NUR ---
RN NOTES PATIENT FINISHED WITH HEMODIALYSIS NOW. INQUIRED FROM PHARMACY IF VANCOMYCIN 1GM IV CAN BE GIVEN NOW DIALYSIS NURSE STATED THAT VANCOMYCIN CANNOT BE GIVEN DURING HEMODIALYSIS AND PHARMACY AGREED. VANCOMYCIN 500MG IV SCHEDULED FOR TOMORROW PER PHARMACY.
--- NOTE | 2019-12-04 13:15 | NUR ---
RN NOTES PATIENT'S POST-HEMODIALYSIS VS: BP-139/66, P-84, TEMP-98.0, O2SAT 98%. OUTPUT WAS 1000ML. PERMACATH ON RIGHT CHEST WALL W/ DRESSING C/D/I, NO BLEEDING NOTED.
[2019-12-04] MEDS: DAKINS QUARTER STRENGTH (0.125%) 480 ML BOTTLE TOP SCH (13:41)
[2019-12-04] MEDS: SOD FERRIC GLUC 125 MG in IV NS 0.9% 100 ML IV SCH (15:00)
[2019-12-04 16:00] VITALS: BP 150/56
[2019-12-04] MEDS ORDERED: EPOETIN ALFA (10,000 UNIT) 10,000 UNIT/ML VIAL IV ONE (17:00)
--- NOTE | 2019-12-04 18:49 | NUR ---
ELECTRICAL SYSTEMS DESIGNER CLOSING NOTES PATIENT IS IN BED RESTING, ABLE TO OPEN EYES. RESPONDS TO TACTILE AND PAINFUL STIMULI, OBTUNDED. BREATHING EVEN AND UNLABORED, WITH CURRENT VENT SETTINGS: SHILEY 6, AC 14, TV 500, FIO2 40%, PEEP 5. ON TELEMONITORING, A-FIB W/ HR AT 70'S. NO CARDIAC DISTRESS NOTED. PERIPHERAL IV ON L HAND INTACT AND PATENT. GT FEEDING OF NEPRO AT 45ML/HR, NO RESIDUAL NOTED. GARRETT CATH INTACT AND DRAINING PARK-COLORED URINE. WITH HD PERMACATH ON RIGHT CHEST, DRESSING C/D/I. PATIENT WAS DIALYZED TODAY. REPOSITIONED Q2H AND PRN FOR COMFORT. SAFETY PRECAUTIONS MAINTAINED: BED ON LOWEST AND LOCKED POSITION, SR UP X2, CALL LIGHT W/IN REACH. WILL ENDORSE TO SKIDDER DRIVER RN FOR DAMEON.
--- NOTE | 2019-12-04 19:32 | NUR ---
RN OPENING NOTES PATIENT RECEIVED RESTING IN BED OBTUNDED, EYES OPEN. TOLERATING VENT SETTINGS WELL WITH BREATHING EVEN AND UNLABORED, NO SOB NOTED. NO SIGNS OF ACUTE DISTRESS. NO SIGNS OF PAIN OR DISCOMFORT NOTED- NO FACIAL GRIMACING. IV LOCATED ON L HAND #24 SL. R CHEST WALL HD CATH NOTED AND IN PLACE. GARRETT CATH NOTED AND IN PLACE. GTUBE FEEDING RUNNING NEPHRO @ 45 ML/HR. SAFETY PRECAUTIONS IN PLACE WITH BED IN LOWEST POSITION,CALL LIGHT WITHIN REACH, BREAKS ON, SIDE RAILS UP. WILL CONTINUE TO MONITOR THROUGHOUT THE NIGHT.
[2019-12-04 20:00] VITALS: BP 134/56
--- NOTE | 2019-12-04 20:02 | NUR ---
RECEIVED PT TRACH SHLY 6 ON MECH VENT. NO RESP DISTRESS NOTED. PT TOLERATING SETTINGS. TRACH SECURE, CUFF CHECKED. AMBU BAG AT BEDSIDE, SPARE TRACH AT BEDSIDE. VENT ALARMS SET AND AUDIBLE. VENT PLUGGED INTO RED OUTLET. WILL CONTINUE TO MONITOR.
[2019-12-04] MEDS: LANOLIN/MIN OIL/PETROLAT,WHT 3.5 GM TUBE EACHEYE SCH (21:16)
[2019-12-04] MEDS: MEROPENEM 500 MG in IV NS 0.9% 50 ML IV SCH (21:16)
[2019-12-05] VITALS: BP 167/68
[2019-12-05] MEDS: METOPROLOL TARTRATE 25 MG TABLET GT SCH ×4 (00:21→17:32)
[2019-12-05] MEDS: NEPRO 1,000 ML BOTTLE GT PRN (00:21)
[2019-12-05] MEDS: INSULIN REGULAR, HUMAN 100 UNIT/ML 3 ML VIAL SQ PRN ×4 (00:32→18:23)
[2019-12-05] MEDS: BLOOD SUGAR DIAGNOSTIC 1 EACH STRIP IN SCH ×4 (00:35→17:32)
[2019-12-05 04:00] VITALS: BP 147/65
[2019-12-05 06:54] LABS: CALCIUM, SERUM 10.2 mg/dL (8.5-10.1); CARBON DIOXIDE 28 mmol/L (21-32); CHLORIDE 100 mmol/L (98-107); CREATININE 2.1 mg/dL (0.6-1.3); GLUCOSE 230 mg/dL (74-106); MAGNESIUM 2.5 mg/dL (1.8-2.4); PHOSPHORUS 2.7 mg/dL (2.5-4.9); POTASSIUM 3.8 mmol/L (3.5-5.1); SODIUM SERUM 136 mmol/L (136-145); UREA NITROGEN, BLOOD 60 mg/dL (7-18)
[2019-12-05 07:04] LABS: BASOPHILS # (AUTO) 0.1 /CMM (0.0-0.2); BASOPHILS % (AUTO) 0.6 % (0.0-2.0); EOSINOPHILS % (AUTO) 1.4 % (0.0-6.0); HEMATOCRIT 25 % (33-45); HEMOGLOBIN 8.1 g/dL (11.5-14.8); LYMPHOCYTES # (AUTO) 1.1 /CMM (0.8-4.8); LYMPHOCYTES % (AUTO) 4.7 % (20.0-44.0); MEAN CORPUSCULAR HGB CONC 32 g/dl (31.0-36.0); MEAN CORPUSCULAR VOLUME 95 fL (82-100); MONOCYTES # (AUTO) 2.6 /CMM (0.1-1.30); MONOCYTES % (AUTO) 11.5 % (2.0-12.0); NEUTROPHILS # (AUTO) 18.2 /CMM (1.8-8.9); NEUTROPHILS % (AUTO) 81.8 % (43.0-81.0); PLATELET COUNT (AUTO) 325 /CMM (150-450); RED BLOOD CELL COUNT(AUTO) 2.69 MIL/uL (4.0-5.2); WHITE BLOOD COUNT (AUTO) 22.2 K/uL (4.3-11.0)
--- NOTE | 2019-12-05 07:29 | NUR ---
RN CLOSING NOTES PATIENT RESTING IN BED OBTUNDED, EYES OPEN. TOLERATING VENT SETTINGS WELL WITH BREATHING EVEN AND UNLABORED, NO SOB NOTED. NO SIGNS OF ACUTE DISTRESS. NO SIGNS OF PAIN OR DISCOMFORT NOTED- NO FACIAL GRIMACING. IV LOCATED ON L HAND #24 SL. R CHEST WALL HD CATH NOTED AND IN PLACE. GARRETT CATH NOTED AND IN PLACE. GTUBE FEEDING RUNNING NEPHRO @ 45 ML/HR. SAFETY PRECAUTIONS IN PLACE WITH BED IN LOWEST POSITION,CALL LIGHT WITHIN REACH, BREAKS ON, SIDE RAILS UP. ALL NEEDS ATTENDED TO. PATIENT KEPT CLEAN AND DRY. WILL ENDORSE TO ONCOMING SHIFT ABOUT DAMEON.
--- NOTE | 2019-12-05 07:30 | NUR ---
ms rn received on bed, vent dependent patient,g tube intact, running at 40ml/hr, tolerating w/o residual noted,rt at bedside, will monitor patient.
[2019-12-05 08:00] VITALS: BP 153/67
--- NOTE | 2019-12-05 08:36 | NUR ---
ms rn due meds given, midodrine held for now, b/p 153/,will recheck later.
[2019-12-05] MEDS: CHLORHEXIDINE GLUCONATE 15 ML UDC MM SCH ×2 (08:38→21:09)
[2019-12-05] MEDS: LINAGLIPTIN 5 MG TABLET GT SCH (08:38)
[2019-12-05] MEDS: ASCORBIC ACID 500 MG TABLET GT SCH ×2 (08:38→16:57)
[2019-12-05] MEDS: METOCLOPRAMIDE HCL 10 MG TABLET GT SCH ×3 (08:38→16:57)
[2019-12-05] MEDS: VIT B CMPLX 3/FA/VIT C/BIOTIN 1 TAB TABLET GT SCH (08:38)
[2019-12-05] MEDS: DOCUSATE SODIUM LIQ 100 MG/10 ML UDC GT SCH ×2 (08:38→16:57)
[2019-12-05] MEDS: APIXABAN 2.5 MG TABLET PO SCH ×2 (08:39→16:59)
[2019-12-05] MEDS: LEVOTHYROXINE SODIUM 75 MCG TABLET GT SCH (08:43)
[2019-12-05] MEDS: MEROPENEM 500 MG in IV NS 0.9% 50 ML IV SCH ×2 (08:44→21:04)
[2019-12-05] MEDS: PROSOURCE / PROSTAT (PYXIS) 30 ML UDC GT SCH ×2 (08:46→17:07)
[2019-12-05] MEDS: ACETAMINOPHEN 650 MG/20.3 ML UDC GT SCH (08:47)
[2019-12-05] MEDS: INSULIN GLARGINE, 100 UNIT/ML CARTRIDGE SQ SCH ×2 (08:57→21:53)
[2019-12-05] MEDS: MIDODRINE HCL (5MG) 5 MG TABLET GT SCH (09:00)
[2019-12-05] MEDS: DAKINS QUARTER STRENGTH (0.125%) 480 ML BOTTLE TOP SCH (09:17)
[2019-12-05] MEDS: CLOTRIMAZOLE 1% CREAM 24 GM TUBE TP SCH (09:18)
[2019-12-05] MEDS: CADEXOMER IODINE 40 GM TUBE TP SCH (09:18)
[2019-12-05 09:53] LABS: EOSINOPHILS % (MANUAL) 3 % (0-4); LYMPHOCYTES % (MANUAL) 5 % (16-48); MONOCYTES % (MANUAL) 9 % (0-11.0); NEUTROPHILS % (MANUAL) 83 (42-76)
[2019-12-05] MEDS ORDERED: VANCOMYCIN 500 MG in IV D5W 100 ML IV PRN (11:00)
--- NOTE | 2019-12-05 11:15 | NUR ---
ms rn son called, wants to speak w/ md regarding code status,texted dr. bhatti to call [phone],w/c he responded to call.
[2019-12-05 11:49] VITALS: BP 143/70
--- NOTE | 2019-12-05 12:30 | NUR ---
ms rn sarcal debridement done by lawrence.
[2019-12-05 15:53] VITALS: BP 134/62
--- NOTE | 2019-12-05 18:30 | NUR ---
ms rn on bed,no distress noted,all needs attended.
--- NOTE | 2019-12-05 19:36 | NUR ---
ROLLING MILL PLUGGER NOTES PATIENT IN BED, OBTUNDED. BREATHING EVEN AND UNLABORED ON MV SHILEY #6, AC 14, TV 500, FI02 40% AND PEEP 5. SHOWS NO SIGNS OF ACUTE RESPIRATORY DISTRESS, NO ACUTE PAIN. TELE MONITOR AFIB CONTROLLED. FC INTACT AND INPLACE FLOW CLOUDY PARK URINE. GTUBE RUNNING NEPRO AT 45ML/HR. NO RESIDUALS. R CHEST WALL HD CATH DRESSING IN PLACE. WITH IV L HAND 24G SL SHOWS NO SIGNS OF INFILTRATION, NO REDNESS. SAFETY PRECAUTIONS IN PLACE. BED IN LOWEST POSITION, LOCKED, AND CALL LIGHT KEPT WITHIN REACH. WILL CONTINUE TO MONITOR.
[2019-12-05 20:00] VITALS: BP 148/53
[2019-12-05] MEDS: LANOLIN/MIN OIL/PETROLAT,WHT 3.5 GM TUBE EACHEYE SCH (22:07)
[2019-12-06] VITALS (7 sets, daily range): BP systolic 120–162; BP diastolic 49–85
[2019-12-06] MEDS: METOPROLOL TARTRATE 25 MG TABLET GT SCH ×4 (00:19→17:26)
[2019-12-06] MEDS: BLOOD SUGAR DIAGNOSTIC 1 EACH STRIP IN SCH ×4 (00:19→17:25)
[2019-12-06] MEDS: INSULIN REGULAR, HUMAN 100 UNIT/ML 3 ML VIAL SQ PRN ×4 (00:21→17:40)
[2019-12-06] MEDS: NEPRO 1,000 ML BOTTLE GT PRN (04:43)
--- NOTE | 2019-12-06 06:54 | NUR ---
LOG RAFTER NOTES PATIENT IN BED, OBTUNDED. OPENS EYES. BREATHING EVEN AND UNLABORED ON MV SHILEY #6, AC 14, TV 500, FI02 40% AND PEEP 5. SHOWS NO SIGNS OF ACUTE RESPIRATORY DISTRESS, NO ACUTE PAIN. TELE MONITOR AFIB CONTROLLED. FC INTACT AND IN PLACE FLOW CLOUDY PARK URINE. GTUBE RUNNING NEPRO AT 45ML/HR. NO RESIDUALS. R CHEST WALL HD CATH DRESSING IN PLACE. WITH IV L HAND 24G SL SHOWS NO SIGNS OF INFILTRATION, NO REDNESS. ALL NEEDS ATTENDED TO. ALL DUE MEDICATIONS GIVEN. SAFETY PRECAUTIONS IN PLACE, BED ALARM ON. BED IN LOWEST POSITION, LOCKED, AND CALL LIGHT KEPT WITHIN REACH. WILL ENDORSE TO ONCOMING NURSE.
[2019-12-06 07:03] LABS: CALCIUM, SERUM 10.8 mg/dL (8.5-10.1); CARBON DIOXIDE 27 mmol/L (21-32); CHLORIDE 100 mmol/L (98-107); CREATININE 2.4 mg/dL (0.6-1.3); GLUCOSE 182 mg/dL (74-106); SODIUM SERUM 136 mmol/L (136-145); UREA NITROGEN, BLOOD 78 mg/dL (7-18)
--- NOTE | 2019-12-06 07:30 | NUR ---
ORACLE EBS CONSULTANT NOTES PATIENT RECEIVED IN BED, OBTUNDED AND RESTING COMFORTABLY. PATIENT ON MECHANICAL VENT, TOLERATING SETTINGS WITH SPO2 AT 100%, WITH NO SIGNS OF RESPIRATORY DISTRESS AND WITH EVEN NON-LABORED BREATHING. ON HR RECEPTIONIST, A-FIB 70'S. PATIENT SKIN WARM AND DRY TO TOUCH. IV ACCESS ON LEFT HAND 24 GAUGE, INTACT AND PATENT. G-TUBE FEEDING INTACT AND PATENT INFUSING NEPHRO AT 45ml/hr WITH NO RESIDUAL NOTED. GARRETT CATHETER IN PLACE. SAFETY PRECAUTIONS IMPLEMENTED WITH BED LOCKED, BED ALARM ON, BED IN THE LOWEST POSITION, BILATERAL SIDE RAILS UP AND CALL LIGHT WITHIN EASY REACH OF THE PATIENT. WILL CONTINUE TO MONITOR PATIENT.
[2019-12-06] MEDS: LEVOTHYROXINE SODIUM 75 MCG TABLET GT SCH (08:32)
[2019-12-06] MEDS: MIDODRINE HCL (5MG) 5 MG TABLET GT SCH (09:00)
[2019-12-06] MEDS: ACETAMINOPHEN 650 MG/20.3 ML UDC GT SCH (09:26)
[2019-12-06] MEDS: PROSOURCE / PROSTAT (PYXIS) 30 ML UDC GT SCH ×2 (09:26→17:26)
[2019-12-06] MEDS: DOCUSATE SODIUM LIQ 100 MG/10 ML UDC GT SCH ×2 (09:26→17:25)
[2019-12-06] MEDS: LINAGLIPTIN 5 MG TABLET GT SCH (09:27)
[2019-12-06] MEDS: VIT B CMPLX 3/FA/VIT C/BIOTIN 1 TAB TABLET GT SCH (09:27)
[2019-12-06] MEDS: ASCORBIC ACID 500 MG TABLET GT SCH ×2 (09:27→17:25)
[2019-12-06] MEDS: CHLORHEXIDINE GLUCONATE 15 ML UDC MM SCH ×2 (09:27→21:28)
[2019-12-06] MEDS: METOCLOPRAMIDE HCL 10 MG TABLET GT SCH ×3 (09:27→17:25)
--- NOTE | 2019-12-06 09:28 | NUR ---
ICE CREAM VENDOR NOTES HELD MEDICATION MIDODRINE, DUE TO BLOOD PRESSURE 141/59, HEART RATE 80. WILL CONTINUE TO MONITOR.
[2019-12-06] MEDS: APIXABAN 2.5 MG TABLET PO SCH ×2 (09:29→17:26)
[2019-12-06] MEDS: INSULIN GLARGINE, 100 UNIT/ML CARTRIDGE SQ SCH ×2 (09:30→21:30)
[2019-12-06] MEDS: MEROPENEM 500 MG in IV NS 0.9% 50 ML IV SCH ×2 (09:46→21:28)
[2019-12-06] MEDS: CLOTRIMAZOLE 1% CREAM 24 GM TUBE TP SCH (09:47)
[2019-12-06] MEDS: DAKINS QUARTER STRENGTH (0.125%) 480 ML BOTTLE TOP SCH (09:47)
[2019-12-06] MEDS: CADEXOMER IODINE 40 GM TUBE TP SCH (09:48)
--- NOTE | 2019-12-06 11:00 | NUR ---
REGISTERED MAIL CLERK NOTES PATIENT'S CALLED REQUESTING TO SPEAK WITH MD. PROVIDED DR GODINEZ PATIENT'S NUMBER, . AT THIS TIME WILL CONTINUE TO MONITOR PATIENT.
--- NOTE | 2019-12-06 15:00 | NUR ---
RADIATION CONTROL WORKER NOTES HEMODIALYSIS STARTED, JACQUES RN AT BEDSIDE WILL CONTINUE TO MONITOR PATIENT.
--- NOTE | 2019-12-06 15:10 | NUR ---
RECORD CENTER SPECIALIST NOTES INFORMED INFECTIOUS DISEASE MD ABOUT PATIENT'S RESPIRATORY CULTURE, NO NEW ORDERS MADE AT THIS TIME. WILL CONTINUE TO MONITOR PATIENT.
--- NOTE | 2019-12-06 17:26 | NUR ---
PARTS COUNTER SALESPERSON NOTES PATIENT STILL IN HEMODIALYSIS, AND PATIENT HAS LOW BLOOD PRESSURE, HELD METOPROLOL, 50mg ORDERED, WILL CONTINUE TO MONITOR PATIENT.
--- NOTE | 2019-12-06 18:21 | NUR ---
TRAIN DIRECTOR NOTES PATIENT IN BED RESTING COMFORTABLY WITH OBTUNDED RESPOND. PATIENT ON POLICY AND PLANNING MANAGER WITH BBB/1ST DEGREE AV BLOCK HEART RATE IN 80'S. PATIENT ON MECHANICAL VENT, TOLERATING SETTINGS WITH sPO2 AT 100%. G-TUBE FEEDING INTACT AND PATENT INFUSING NEPRO 45ml/hr, WITH NO RESIDUAL NOTED. GARRETT CATHETER IN PLACE. IV ACCESS INTACT AND PATENT ON LEFT HAND. SKIN KEPT CLEAN AND DRY. ALL OF PATIENT NEEDS MET. PATIENT PRESENTS WITH NO SIGNS OF PAIN OR DISCOMFORT. SAFETY PRECAUTIONS IMPLEMENTED WITH BED LOCKED, BED IN THE LOWEST POSITION, BILATERAL SIDE RAILS UP, BED ALARM ON AND CALL LIGHT WITHIN EASY REACH OF THE PATIENT. WILL ENDORSE PLAN OF CARE TO UPCOMING NURSE.
[2019-12-06] MEDS ORDERED: TOBRAMYCIN IV PRN ×2 (19:30→21:00)
[2019-12-06] MEDS ORDERED: TOBRAMYCIN IV ONE (19:30)
[2019-12-06] MEDS ORDERED: D5W IV ONE (19:30)
[2019-12-06] MEDS ORDERED: D5W IV PRN ×2 (19:30→21:00)
[2019-12-06] MEDS ORDERED: VANCOMYCIN 1 GM in IV D5W 250 ML IV ONE (20:00)
--- NOTE | 2019-12-06 20:00 | NUR ---
MS RN OPENING NOTE: Received patient from AM nurse. Patient in bed, awake. Opens eyes but non-verbal. Patient on mechanical ventilator and tolerating vent settings. No SOB or acute respiratory distress noted. Noted left hand IV access, leaking when flushed. Inserted new IV access on right wrist, 24 gauge, patent, dry, intact, no redness, or infiltration. Noted right chest wall HD cath. Also noted [place] cath, draining clear yellow output. Patient on gtube feeding. Safety precaution in place, bed is in the lowest level, brakes are on, alarm is on, side rails x2 are up, and call light is within reach. Will continue to monitor.
[2019-12-06] MEDS: LANOLIN/MIN OIL/PETROLAT,WHT 3.5 GM TUBE EACHEYE SCH (21:28)
[2019-12-07] VITALS: BP 141/64
[2019-12-07] MEDS: METOPROLOL TARTRATE 25 MG TABLET GT SCH ×4 (00:36→17:39)
[2019-12-07] MEDS: INSULIN REGULAR, HUMAN 100 UNIT/ML 3 ML VIAL SQ PRN ×3 (00:38→12:12)
[2019-12-07] MEDS: BLOOD SUGAR DIAGNOSTIC 1 EACH STRIP IN SCH ×4 (00:40→17:45)
[2019-12-07 04:00] VITALS: BP 144/68
[2019-12-07] MEDS ORDERED: VANCOMYCIN 500 MG in IV D5W 100 ML IV PRN (06:00)
--- NOTE | 2019-12-07 06:35 | NUR ---
LABORER POLE CREW NOTE: Patient glucose 127. Hold insulin per sliding scale.
[2019-12-07 06:42] LABS: BASOPHILS # (AUTO) 0.1 /CMM (0.0-0.2); BASOPHILS % (AUTO) 0.6 % (0.0-2.0); EOSINOPHILS % (AUTO) 2.2 % (0.0-6.0); HEMATOCRIT 26 % (33-45); HEMOGLOBIN 7.9 g/dL (11.5-14.8); LYMPHOCYTES # (AUTO) 1.4 /CMM (0.8-4.8); LYMPHOCYTES % (AUTO) 7.2 % (20.0-44.0); MEAN CORPUSCULAR HGB CONC 31 g/dl (31.0-36.0); MEAN CORPUSCULAR VOLUME 101 fL (82-100); MONOCYTES # (AUTO) 2.3 /CMM (0.1-1.30); MONOCYTES % (AUTO) 11.8 % (2.0-12.0); NEUTROPHILS # (AUTO) 15.3 /CMM (1.8-8.9); NEUTROPHILS % (AUTO) 78.2 % (43.0-81.0); PLATELET COUNT (AUTO) 264 /CMM (150-450); RED BLOOD CELL COUNT(AUTO) 2.53 MIL/uL (4.0-5.2); WHITE BLOOD COUNT (AUTO) 19.5 K/uL (4.3-11.0)
[2019-12-07] MEDS: LEVOTHYROXINE SODIUM 75 MCG TABLET GT SCH (06:48)
[2019-12-07 07:03] LABS: CARBON DIOXIDE 24 mmol/L (21-32); CHLORIDE 98 mmol/L (98-107); CREATININE 2.1 mg/dL (0.6-1.3); GLUCOSE 130 mg/dL (74-106); MAGNESIUM 2.8 mg/dL (1.8-2.4); PHOSPHORUS 3.1 mg/dL (2.5-4.9); POTASSIUM 4.4 mmol/L (3.5-5.1); SODIUM SERUM 133 mmol/L (136-145); UREA NITROGEN, BLOOD 64 mg/dL (7-18)
--- NOTE | 2019-12-07 07:36 | NUR ---
HANDLE ATTACHER NOTE PATIENT IN BED RESTING COMFORTABLY. PATIENT ON VENT, TOLERATING VENT SETTINGS WELL. PATIENT IN NO ACUTE DISTRESS. NO SOB NOTED. PATIENT BREATHING IS EVEN AND UNLABORED. PATIENT ON CARDIAC MONITORING READING SINUS RHYTHM HR 82 WITH BBB. PATIENT BED ALARM IS ON. HOB IS ELEVATED. SAFETY PRECAUTIONS IN PLACE. PATIENT BED IS LOCKED AND IN LOWEST POSITION. CALL LIGHT WITHIN REACH. WILL CONTINUE TO MONITOR.
[2019-12-07 08:00] VITALS: BP 136/61
[2019-12-07] MEDS: PROSOURCE / PROSTAT (PYXIS) 30 ML UDC GT SCH ×2 (08:47→16:38)
[2019-12-07] MEDS: MIDODRINE HCL (5MG) 5 MG TABLET GT SCH (08:53)
[2019-12-07] MEDS ORDERED: EPOETIN ALFA (4000 UNIT) 4,000 UNIT/ML VIAL SQ SCH (09:00)
[2019-12-07] MEDS: ACETAMINOPHEN 650 MG/20.3 ML UDC GT SCH (09:03)
[2019-12-07] MEDS: MEROPENEM 500 MG in IV NS 0.9% 50 ML IV SCH ×2 (09:03→21:30)
[2019-12-07] MEDS: VIT B CMPLX 3/FA/VIT C/BIOTIN 1 TAB TABLET GT SCH (09:03)
[2019-12-07] MEDS: DOCUSATE SODIUM LIQ 100 MG/10 ML UDC GT SCH ×2 (09:03→16:37)
[2019-12-07] MEDS: CHLORHEXIDINE GLUCONATE 15 ML UDC MM SCH ×2 (09:03→21:25)
[2019-12-07] MEDS: APIXABAN 2.5 MG TABLET PO SCH ×2 (09:05→16:40)
[2019-12-07] MEDS: INSULIN GLARGINE, 100 UNIT/ML CARTRIDGE SQ SCH ×2 (09:05→21:40)
[2019-12-07] MEDS: METOCLOPRAMIDE HCL 10 MG TABLET GT SCH ×3 (09:06→16:38)
[2019-12-07] MEDS: ASCORBIC ACID 500 MG TABLET GT SCH ×2 (09:06→16:38)
[2019-12-07] MEDS: LINAGLIPTIN 5 MG TABLET GT SCH (09:06)
[2019-12-07] MEDS: CADEXOMER IODINE 40 GM TUBE TP SCH (09:08)
[2019-12-07] MEDS: DAKINS QUARTER STRENGTH (0.125%) 480 ML BOTTLE TOP SCH (09:08)
[2019-12-07] MEDS: NEPRO 1,000 ML BOTTLE GT PRN (09:10)
--- NOTE | 2019-12-07 09:11 | NUR ---
LEATHER SCRUBBER NOTE HELD MIDODRINE DUE TO BP 136/61, HR 79.
[2019-12-07 10:40] LABS: BAND % (MANUAL) 2 % (0.0-5.0); EOSINOPHILS % (MANUAL) 2 % (0-4); LYMPHOCYTES % (MANUAL) 8 % (16-48); MONOCYTES % (MANUAL) 11 % (0-11.0); NEUTROPHILS % (MANUAL) 77 (42-76)
--- NOTE | 2019-12-07 13:20 | NUR ---
BALE TIE MACHINE OPERATOR NOTE PATIENT RIGHT HAND 24G INFILTRATED. MULTIPLE ATTEMPTS TO GET IV ACCESS, UNABLE TO GET IV DUE TO PATIENT BEING A HARD STICK. INFORMED DR. GODINEZ. PER DR. HERBERT CANTU ORDER FOR MIDLINE AND APPROVED BY MONITORING ANALYST JANE.
--- NOTE | 2019-12-07 14:30 | NUR ---
RIGGER UP NOTE PATIENT TOLERATED MIDLINE WELL, MIDLINE ON JAY 18G PATENT AND INTACT.
[2019-12-07] MEDS ORDERED: TOBRAMYCIN 100 MG in IV D5W 100 ML IV PRN (15:00)
[2019-12-07 16:00] VITALS: BP 138/48
--- NOTE | 2019-12-07 17:26 | NUR ---
TUNGSTEN TENDER NOTE PATIENT BLOOD SUGAR IS 112. NO INSULIN COVERAGE NEEDED PER PROTOCOL.
--- NOTE | 2019-12-07 18:41 | NUR ---
COUNTER MAKER CLOSING NOTE PATIENT IN BED RESTING COMFORTABLY. PATIENT ON VENT, TOLERATING VENT SETTINGS WELL. PATIENT IN NO ACUTE DISTRESS. NO SOB NOTED. PATIENT BREATHING IS EVEN AND UNLABORED. PATIENT ON CARDIAC MONITORING READING SINUS RHYTHM HR 85 WITH AFIB AND FIRST DEGREE BLOCK. PATIENT KEPT CLEAN, DRY AND COMFORTABLE THROUGHOUT SHIFT. PATIENT BED ALARM IS ON. HOB IS ELEVATED. SAFETY PRECAUTIONS IN PLACE. PATIENT BED IS LOCKED AND IN LOWEST POSITION. CALL LIGHT WITHIN REACH. WILL ENDORSE CARE TO PM SHIFT FOR DAMEON.
[2019-12-07] MEDS: MICAFUNGIN SODIUM 100 MG in IV NS 0.9% 100 ML IV SCH (18:54)
--- NOTE | 2019-12-07 19:00 | NUR ---
TELE/RN OPENING NOTES: PATIENT IN BED RESTING COMFORTABLY. TOLERATING MECH. VENT SETTINGS, IN NO ACUTE DISTRESS. NO SOB NOTED. PATIENT BREATHING IS EVEN AND UNLABORED. PATIENT ON CARDIAC MONITORING READING SINUS RHYTHM HR 80S WITH BBB AND FIRST DEGREE BLOCK. BED ALARM IS ON. HOB IS ELEVATED. SAFETY PRECAUTIONS IN PLACE. PATIENT BED IS LOCKED AND IN LOWEST POSITION. CALL LIGHT WITHIN REACH. WILL CONTINUE TO MONITOR.
[2019-12-07 20:00] VITALS: BP 126/75
[2019-12-07] MEDS: LANOLIN/MIN OIL/PETROLAT,WHT 3.5 GM TUBE EACHEYE SCH (21:29)
[2019-12-08] VITALS: BP 126/66
[2019-12-08] MEDS: BLOOD SUGAR DIAGNOSTIC 1 EACH STRIP IN SCH ×5 (00:24→23:39)
[2019-12-08] MEDS: INSULIN REGULAR, HUMAN 100 UNIT/ML 3 ML VIAL SQ PRN ×5 (00:26→23:39)
[2019-12-08] MEDS: METOPROLOL TARTRATE 25 MG TABLET GT SCH ×5 (00:29→23:33)
[2019-12-08 04:00] VITALS: BP 128/38
[2019-12-08 04:30] VITALS: BP 126/62
--- NOTE | 2019-12-08 07:20 | NUR ---
TELE/RN CLOSING NOTES: PATIENT REMAINS IN BED, REMAINS COMFORTABLE. TOLERATING MECH. VENT SETTINGS, NO ACUTE DISTRESS NOTED. NO SOB NOTED. BREATHING IS EVEN AND UNLABORED. CARDIAC MONITORING READING SINUS RHYTHM HR WITH BBB AND FIRST DEGREE BLOCK. BED ALARM IS ON. HOB IS ELEVATED. SAFETY PRECAUTIONS IN PLACE. PATIENT BED IS LOCKED AND IN LOWEST POSITION. CALL LIGHT WITHIN REACH. ENDORSED TO DAY SHIFT FOR DAMEON.
[2019-12-08 07:21] LABS: CALCIUM, SERUM 10.4 mg/dL (8.5-10.1); CARBON DIOXIDE 29 mmol/L (21-32); CHLORIDE 100 mmol/L (98-107); CREATININE 2.3 mg/dL (0.6-1.3); GLUCOSE 142 mg/dL (74-106); POTASSIUM 4.2 mmol/L (3.5-5.1); SODIUM SERUM 137 mmol/L (136-145); UREA NITROGEN, BLOOD 77 mg/dL (7-18)
--- NOTE | 2019-12-08 07:24 | NUR ---
FERRY PILOT OPENING NOTE PATIENT IN BED RESTING COMFORTABLY. PATIENT ON VENT, TOLERATING VENT SETTINGS WELL. PATIENT IN NO ACUTE DISTRESS. NO SOB NOTED. PATIENT BREATHING IS EVEN AND UNLABORED. PATIENT ON CARDIAC MONITORING READING SINUS RHYTHM HR 81 WITH AFIB AND FIRST DEGREE BLOCK. PATIENT BED ALARM IS ON. HOB IS ELEVATED. SAFETY PRECAUTIONS IN PLACE. PATIENT BED IS LOCKED AND IN LOWEST POSITION. CALL LIGHT WITHIN REACH. WILL CONTINUE TO MONITOR.
--- NOTE | 2019-12-08 07:33 | NUR ---
TELE/RN OPENING NOTEWS PATIENT IN BED RESTING COMFORTABLY. PATIENT ON VENT, TOLERATING VENT SETTINGS WELL. PATIENT IN NO ACUTE DISTRESS. NO SOB NOTED. PATIENT BREATHING IS EVEN AND UNLABORED. PATIENT ON CARDIAC MONITORING READING SINUS RHYTHM HR 81 WITH AFIB AND FIRST DEGREE BLOCK. PATIENT BED ALARM IS ON. HOB IS ELEVATED. SAFETY PRECAUTIONS IN PLACE. PATIENT BED IS LOCKED AND IN LOWEST POSITION. CALL LIGHT WITHIN REACH. WILL CONTINUE TO MONITOR. Addendum: 12/08/19 at 0734 by FRAN CORREA RN INCORRECT. PLS DISREGARD.
[2019-12-08] MEDS: LEVOTHYROXINE SODIUM 75 MCG TABLET GT SCH (07:40)
[2019-12-08 08:00] VITALS: BP 140/55
[2019-12-08] MEDS: MIDODRINE HCL (5MG) 5 MG TABLET GT SCH (08:24)
--- NOTE | 2019-12-08 08:24 | NUR ---
RN NOTE HELD MIDODRINE DUE TO ELEVATED BP 140/55.
[2019-12-08] MEDS: VIT B CMPLX 3/FA/VIT C/BIOTIN 1 TAB TABLET GT SCH (08:36)
[2019-12-08] MEDS: ASCORBIC ACID 500 MG TABLET GT SCH ×2 (08:36→17:34)
[2019-12-08] MEDS: LINAGLIPTIN 5 MG TABLET GT SCH (08:36)
[2019-12-08] MEDS: APIXABAN 2.5 MG TABLET PO SCH ×2 (08:37→17:34)
[2019-12-08] MEDS: INSULIN GLARGINE, 100 UNIT/ML CARTRIDGE SQ SCH ×2 (08:37→20:53)
[2019-12-08] MEDS: METOCLOPRAMIDE HCL 10 MG TABLET GT SCH ×3 (08:38→17:34)
[2019-12-08] MEDS: DOCUSATE SODIUM LIQ 100 MG/10 ML UDC GT SCH ×2 (08:38→17:34)
[2019-12-08] MEDS: ACETAMINOPHEN 650 MG/20.3 ML UDC GT SCH (08:38)
[2019-12-08] MEDS: CHLORHEXIDINE GLUCONATE 15 ML UDC MM SCH ×2 (08:38→20:55)
[2019-12-08] MEDS: CADEXOMER IODINE 40 GM TUBE TP SCH (08:39)
[2019-12-08] MEDS: DAKINS QUARTER STRENGTH (0.125%) 480 ML BOTTLE TOP SCH (08:39)
[2019-12-08] MEDS: MEROPENEM 500 MG in IV NS 0.9% 50 ML IV SCH (08:41)
[2019-12-08] MEDS: PROSOURCE / PROSTAT (PYXIS) 30 ML UDC GT SCH ×2 (08:46→17:34)
[2019-12-08] MEDS: NEPRO 1,000 ML BOTTLE GT PRN (11:49)
[2019-12-08 16:00] VITALS: BP 143/43
[2019-12-08] MEDS: MICAFUNGIN SODIUM 100 MG in IV NS 0.9% 100 ML IV SCH (19:08)
--- NOTE | 2019-12-08 19:43 | NUR ---
MANAGER PLUMBING CLOSING NOTE PATIENT IN BED RESTING COMFORTABLY. PATIENT ON VENT, TOLERATING VENT SETTINGS WELL. PATIENT IN NO ACUTE DISTRESS. NO SOB NOTED. PATIENT BREATHING IS EVEN AND UNLABORED. PATIENT ON CARDIAC MONITORING READING SINUS RHYTHM HR 80s WITH AFIB AND FIRST DEGREE BLOCK. PATIENT KEPT CLEAN, DRY AND COMFORTABLE THROUGHOUT SHIFT. PATIENT BED ALARM IS ON. HOB IS ELEVATED. SAFETY PRECAUTIONS IN PLACE. PATIENT BED IS LOCKED AND IN LOWEST POSITION. CALL LIGHT WITHIN REACH. WILL ENDORSE CARE TO PM SHIFT FOR DAMEON.
[2019-12-08 20:00] VITALS: BP 155/47
[2019-12-08] MEDS: LANOLIN/MIN OIL/PETROLAT,WHT 3.5 GM TUBE EACHEYE SCH (20:53)
--- NOTE | 2019-12-08 23:13 | NUR ---
REPORT GIVEN TO JAGDISH TO CONTINUE CARE. PT IN NO APPARENT DISTRESS AT THIS TIME TOLERATING VENT SETTINGS. BED DOWN LOCKED SRX3 CALL LIGHT PLACED WITHIN REACH. TELE AND CONT SPO2 MONITOR WITH ALARMS SET AND AUDIBLE.
--- NOTE | 2019-12-08 23:13 | NUR ---
GAS MAIN AND LINE FITTER OPENING NOTE: Received report from Charles for continuity of care. Patient in bed with eyes open. Patient is non verbal with flat affect. Patient on mechanical ventilator and tolerating settings. No SOB or respiratory distress noted. Noted right upper arm midline, dressing dry and intact, patent, no redness, or infiltration. Right chest wall HD cath noted, dressing intact. Noted Greenfield catheter draining clear yellow output. Gtube feeding running Nepro @ 45 mL/hr. Safety precaution is in place, bed is in the lowest level, bed is locked, alarm is on, side rails x3 are up, and call light is within reach. Will continue to monitor.
[2019-12-09] VITALS (7 sets, daily range): BP systolic 112–151; BP diastolic 51–64
[2019-12-09] MEDS: BLOOD SUGAR DIAGNOSTIC 1 EACH STRIP IN SCH ×4 (05:24→23:48)
[2019-12-09] MEDS: METOPROLOL TARTRATE 25 MG TABLET GT SCH ×4 (05:24→23:51)
[2019-12-09] MEDS: INSULIN REGULAR, HUMAN 100 UNIT/ML 3 ML VIAL SQ PRN ×2 (05:26→23:55)
--- NOTE | 2019-12-09 06:37 | NUR ---
HOUSING ASSISTANT CLOSING NOTE: Patient in bed sleeping comfortable. Patient shows no signs of pain or discomfort. All patient needs were attended to. Patient is table and breathing well on mechanical ventilator. No acute respiratory distress noted. Safety precaution is maintained, bed is in the lowest level, bed is locked, alarm is on, side rails x2 are up, and call light is within reach. Will endorse to AM nurse.
--- NOTE | 2019-12-09 08:00 | NUR ---
RN NOTES RECEIVED PATIENT IN THE BED TRACHEA/VENT DEPENDENT. PATIENT HAS NO ACUTE RESPIRATORY DISTRESS, V/S TAKEN STABLE, GENERALIZED EDEMA, MULTIPLE WOUNDS, AND DISCOLORATION. PATIENT ON GT FEEDING, RESIDUAL, AND PLACEMENT CHECKED, INFUSING NEPRO 45 ML/HR, V/S WNL, KEEP HOB ELEVATED FOR ASPIRATION PRECAUTION, DUE MEDICATION ADMINISTERED VIA GT, SUCTION, AND ORAL CARE PROVIDED. IV ACCESS ON JAY MIDLINE INTACT, AND RIGHT CHEST WALL HD INTACT . ASSIST TURN AND REPOSTION Q 2 HR. GARRETT DRAINING TEA COLOR OUTPUT. WILL CONTINUED MONITORING.
[2019-12-09 08:52] LABS: CALCIUM, SERUM 10.8 mg/dL (8.5-10.1); CARBON DIOXIDE 29 mmol/L (21-32); CHLORIDE 98 mmol/L (98-107); CREATININE 2.5 mg/dL (0.6-1.3); GLUCOSE 140 mg/dL (74-106); POTASSIUM 4.4 mmol/L (3.5-5.1); SODIUM SERUM 134 mmol/L (136-145)
[2019-12-09] MEDS: DOCUSATE SODIUM LIQ 100 MG/10 ML UDC GT SCH ×2 (09:51→17:33)
[2019-12-09] MEDS: VIT B CMPLX 3/FA/VIT C/BIOTIN 1 TAB TABLET GT SCH (09:51)
[2019-12-09] MEDS: MIDODRINE HCL (5MG) 5 MG TABLET GT SCH (09:51)
[2019-12-09] MEDS: METOCLOPRAMIDE HCL 10 MG TABLET GT SCH ×3 (09:51→17:33)
[2019-12-09] MEDS: CHLORHEXIDINE GLUCONATE 15 ML UDC MM SCH ×2 (09:51→21:03)
[2019-12-09] MEDS: LINAGLIPTIN 5 MG TABLET GT SCH (09:51)
[2019-12-09] MEDS: ASCORBIC ACID 500 MG TABLET GT SCH ×2 (09:51→17:33)
[2019-12-09] MEDS: LEVOTHYROXINE SODIUM 75 MCG TABLET GT SCH (09:52)
[2019-12-09] MEDS: APIXABAN 2.5 MG TABLET PO SCH ×2 (09:52→17:34)
[2019-12-09] MEDS: DAKINS QUARTER STRENGTH (0.125%) 480 ML BOTTLE TOP SCH (09:54)
[2019-12-09] MEDS: CADEXOMER IODINE 40 GM TUBE TP SCH (09:55)
[2019-12-09] MEDS: PROSOURCE / PROSTAT (PYXIS) 30 ML UDC GT SCH ×2 (10:06→17:39)
[2019-12-09] MEDS: INSULIN GLARGINE, 100 UNIT/ML CARTRIDGE SQ SCH ×2 (10:07→20:52)
[2019-12-09 10:08] LABS: UREA NITROGEN, BLOOD 89 mg/dL (7-18)
[2019-12-09] MEDS: ACETAMINOPHEN 650 MG/20.3 ML UDC GT SCH (10:09)
[2019-12-09 13:20] LABS: BASOPHILS # (AUTO) 0.1 /CMM (0.0-0.2); BASOPHILS % (AUTO) 0.4 % (0.0-2.0); LYMPHOCYTES # (AUTO) 0.9 /CMM (0.8-4.8); LYMPHOCYTES % (AUTO) 4.9 % (20.0-44.0); MEAN CORPUSCULAR HGB CONC 32 g/dl (31.0-36.0); MEAN CORPUSCULAR VOLUME 98 fL (82-100); MONOCYTES # (AUTO) 2.5 /CMM (0.1-1.30); MONOCYTES % (AUTO) 13.6 % (2.0-12.0); NEUTROPHILS # (AUTO) 14.4 /CMM (1.8-8.9); NEUTROPHILS % (AUTO) 79.1 % (43.0-81.0); PLATELET COUNT (AUTO) 272 /CMM (150-450); WHITE BLOOD COUNT (AUTO) 18.2 K/uL (4.3-11.0)
[2019-12-09 13:21] LABS: RED BLOOD CELL COUNT(AUTO) 1.95 MIL/uL (4.0-5.2)
[2019-12-09 13:25] LABS: HEMATOCRIT 19 % (33-45)
--- NOTE | 2019-12-09 13:28 | NUR ---
rn notes called dr bhatti for low htc/hgl and get TO order stool for occult blood. Order taken and carried out.
--- NOTE | 2019-12-09 14:00 | NUR ---
rn notes GET TO CONSENT FORM FOR BLOOD TRANSFUSION PATIENT'S DAUGHTER NAME BRANDY , CO SIGN CO-WORKER KANDACE CUELLAR.
[2019-12-09] MEDS: PANTOPRAZOLE 40 MG VIAL IV SCH (14:54)
--- NOTE | 2019-12-09 17:30 | NUR ---
RN NOTES PER HOSPITALIST DR GODINEZ CANCEL BLOOD TRANSFUSION, BECAUSE PER FAMILY REQUEST PATIENT WILL GO HOSPICE CARE.
[2019-12-09] MEDS: MICAFUNGIN SODIUM 100 MG in IV NS 0.9% 100 ML IV SCH (18:09)
--- NOTE | 2019-12-09 18:30 | NUR ---
RN NOTES PATIENT STABLE, INFUSING MYCAMINE 100 ML/HR ON RIGHT UA INTACT, V/S STABLE, DUE MEDICATION ADMINISTERED, ASSIST TURN AND REPOSTION Q 2 HR.HOB ELEVATED ASPIRATION PRECAUTION. GFT INFUSING 45 ML/HR INTACT. ENDORSED ONCOMING NURSE FOLLOW PLAN OF CARE.
--- NOTE | 2019-12-09 19:30 | NUR ---
SUSTAINABILITY PROJECT MANAGER OPENING NOTES RECEIVED PATIENT RESTING IN BED COMFORTABLY; OBTUNDED; BREATHING EVEN AND UNLABORED; PATIENT TOLERATING CURRENT VENT SETTINGS WELL; HD NURSE AT BEDSIDE; PER AM SHIFT, H/H 6.0/, MD IS AWARE, SINCE FAMILY WOULD LIKE PATIENT TO BE HOSPICE CARE, MD CANCELLED BLOOD TRANSFUSION; BOTH CHARGE NURSES AWARE; HEMODIALYSIS OK; R UA MIDLINE # 18 INTACT AND PATENT, R CHESTWALL HD CATH, IN PLACE; GTUBE INFUSING NEPHRO @ 45ML/HR; GARRETT CATH IN PLACE WITH YELLOW OUTPUT NOTED; SAFETY PRECAUTIONS IMPLEMENTED; BED LOCKED IN LOW POSITION; SIDE RAILSX3; WILL CONT TO MONITOR
[2019-12-09] MEDS: LANOLIN/MIN OIL/PETROLAT,WHT 3.5 GM TUBE EACHEYE SCH (21:04)
--- NOTE | 2019-12-09 21:05 | NUR ---
AUTOMOBILE MECHANIC RADIATOR NOTES AWAITING VANCO TROUGH PRIOR TO ADMINISTRATION OF VANCO IV POST-HD
[2019-12-09] MEDS ORDERED: VANCOMYCIN 1.5 GM in IV D5W 500ml IV ONE (22:00)
[2019-12-09] MEDS ORDERED: VANCOMYCIN 1 GM in IV D5W 250 ML IV ONE (22:00)
--- NOTE | 2019-12-09 22:20 | NUR ---
ADMINISTRATIVE STAFF SUPERVISOR NOTES AWAITING VANCO TROUGH RESULTS; RESULTS STILL PENDING; WILL CONT TO MONITOR
--- NOTE | 2019-12-09 22:56 | NUR ---
AIR CONDITIONING SERVICE TECHNICIAN NOTES EMILYO TROUGH: 10, WILL ADMINISTER MED PER MD ORDER
[2019-12-09] MEDS: NEPRO 1,000 ML BOTTLE GT PRN (23:26)
--- NOTE | 2019-12-09 23:50 | NUR ---
PAEDIATRIC THORACIC PHYSICIAN NOTES GTUBE RESIDUALS APPROX 80ML. GTUBE FEEDING PAUSED FOR NOW; WILL RE-ASSESS; WILL CONT TO MONITOR
[2019-12-10] VITALS (9 sets, daily range): BP systolic 95–132; BP diastolic 37–70
--- NOTE | 2019-12-10 05:34 | NUR ---
SPORTSPERSONS NOTES ATTEMPTED TO CONTACT BRANDY (DAUGHTER) X2, STRAIGHT TO VOICEMAIL Addendum: 12/10/19 at 0535 by DIANN COKER RN ATTEMPTED TO CONTACT BRANDY (DAUGHTER) REGARDING PATIENT CONDITION; UNABLE TO REACH FAMILY AT THIS TIME;
--- NOTE | 2019-12-10 05:45 | NUR ---
NUMERICAL CONTROL MACHINE TOOL OPERATOR NOTES GEOFFREY LLOYD MADE AWARE OF PATIENT CONDITION; PER GEOFFREY LLOYD STAT EKG. ORDERS CARRIED OUT; AWAITING FOR EKG; CHARGE NURSE AWARE; WILL CONT TO MONITOR
[2019-12-10] MEDS: METOPROLOL TARTRATE 25 MG TABLET GT SCH ×3 (06:00→18:00)
[2019-12-10] MEDS: BLOOD SUGAR DIAGNOSTIC 1 EACH STRIP IN SCH ×3 (06:00→17:14)
[2019-12-10] MEDS: INSULIN REGULAR, HUMAN 100 UNIT/ML 3 ML VIAL SQ PRN ×2 (06:01→19:42)
--- NOTE | 2019-12-10 06:32 | NUR ---
SALES ATTENDANT CLOSING NOTES PATIENT RESTING IN BED COMFORTABLY; OBTUNDED, OPENS EYES; BREATHING EVEN AND UNLABORED; NO CHANGES IN VENT SETTINGS; NO SOB NOTED; TELE MONITOR READS, SINUS RHYTHM WITH BBB 70 - 80S BPM; EKG RESULTED AND GEOFFREY LLOYD MADE AWARE; EKG FILED IN PATIENT CHART; JAY MIDLINE INTACT, R CHEST WALL HD CATH PRESENT; GTUBE FEEDING @45ML/HR; GARRETT CATH IN PLACE WITH YELLOW OUTPUT; AWAITING FAMILY MEMBERS FOR TRANSITION TO COMFORT/HOSPICE CARE; CHARGE NURSE AWARE; ALL NEEDS RENDERED; SAFETY PRECAUTIONS IMPLEMENTED; BED LOCKED IN LOW POSITION; SIDE RAILSX2; WILL ENDORSE DAMEON TO ONCOMING SHIFT
[2019-12-10 07:15] LABS: BASOPHILS # (AUTO) 0.1 /CMM (0.0-0.2); BASOPHILS % (AUTO) 0.6 % (0.0-2.0); EOSINOPHILS % (AUTO) 2.9 % (0.0-6.0); HEMATOCRIT 21 % (33-45); LYMPHOCYTES # (AUTO) 1.1 /CMM (0.8-4.8); LYMPHOCYTES % (AUTO) 6.6 % (20.0-44.0); MEAN CORPUSCULAR HGB CONC 31 g/dl (31.0-36.0); MEAN CORPUSCULAR VOLUME 100 fL (82-100); MONOCYTES # (AUTO) 2.4 /CMM (0.1-1.30); MONOCYTES % (AUTO) 13.9 % (2.0-12.0); NEUTROPHILS # (AUTO) 13.2 /CMM (1.8-8.9); PLATELET COUNT (AUTO) 282 /CMM (150-450); RED BLOOD CELL COUNT(AUTO) 2.13 MIL/uL (4.0-5.2); WHITE BLOOD COUNT (AUTO) 17.3 K/uL (4.3-11.0)
--- NOTE | 2019-12-10 07:30 | NUR ---
MULTI OPERATION MACHINE OPERATOR NOTES PT IN BED, AWAKE, NON VERBAL, NO SIGN OF PAIN OR DISTRESS, ON VENT/TRACH, NO SOB NOTED, GT FEEDING INFUSING WELL, GARRETT CATH INTACT AND DRAINING WELL WITH CLEAR, TEA COLORED URINE, VITAL SIGNS STABLE, AFEBRILE, KEPT WARM AND COMFORTABLE IN BED.
[2019-12-10 07:32] LABS: CALCIUM, SERUM 10.2 mg/dL (8.5-10.1); CARBON DIOXIDE 28 mmol/L (21-32); CHLORIDE 98 mmol/L (98-107); CREATININE 2.4 mg/dL (0.6-1.3); GLUCOSE 121 mg/dL (74-106); POTASSIUM 4.4 mmol/L (3.5-5.1); SODIUM SERUM 134 mmol/L (136-145); UREA NITROGEN, BLOOD 79 mg/dL (7-18)
[2019-12-10 07:41] LABS: HEMOGLOBIN 6.7 g/dL (11.5-14.8)
[2019-12-10] MEDS: LEVOTHYROXINE SODIUM 75 MCG TABLET GT SCH (08:10)
[2019-12-10 08:29] LABS: BAND % (MANUAL) 3 % (0.0-5.0); EOSINOPHILS % (MANUAL) 1 % (0-4); LYMPHOCYTES % (MANUAL) 7 % (16-48); MONOCYTES % (MANUAL) 13 % (0-11.0); NEUTROPHILS % (MANUAL) 76 (42-76)
[2019-12-10] MEDS: VIT B CMPLX 3/FA/VIT C/BIOTIN 1 TAB TABLET GT SCH (09:35)
[2019-12-10] MEDS: CHLORHEXIDINE GLUCONATE 15 ML UDC MM SCH ×2 (09:35→21:56)
[2019-12-10] MEDS: DOCUSATE SODIUM LIQ 100 MG/10 ML UDC GT SCH ×2 (09:35→17:11)
[2019-12-10] MEDS: ACETAMINOPHEN 650 MG/20.3 ML UDC GT SCH (09:35)
[2019-12-10] MEDS: METOCLOPRAMIDE HCL 10 MG TABLET GT SCH ×3 (09:36→17:12)
[2019-12-10] MEDS: ASCORBIC ACID 500 MG TABLET GT SCH ×2 (09:36→17:12)
[2019-12-10] MEDS: MIDODRINE HCL (5MG) 5 MG TABLET GT SCH (09:37)
[2019-12-10] MEDS: LINAGLIPTIN 5 MG TABLET GT SCH (09:38)
[2019-12-10] MEDS: PROSOURCE / PROSTAT (PYXIS) 30 ML UDC GT SCH ×2 (09:38→17:18)
[2019-12-10] MEDS: DAKINS QUARTER STRENGTH (0.125%) 480 ML BOTTLE TOP SCH (09:39)
[2019-12-10] MEDS: APIXABAN 2.5 MG TABLET PO SCH ×2 (09:44→17:14)
[2019-12-10] MEDS: INSULIN GLARGINE, 100 UNIT/ML CARTRIDGE SQ SCH ×2 (09:48→21:56)
--- NOTE | 2019-12-10 11:30 | NUR ---
TALENT ACQUISITION OPERATIONS MANAGER NOTES PT SEEN AND EXAMINED BY DR. YANETH MD SPOKE WITH THE FAMILY AT LENGTH REGARDING PLAN OF CARE, NEW ORDERS GIVEN.
[2019-12-10] MEDS: CADEXOMER IODINE 40 GM TUBE TP SCH (12:32)
[2019-12-10] MEDS: PANTOPRAZOLE 40 MG VIAL IV SCH (13:37)
[2019-12-10] MEDS ORDERED: LIDOCAINE 1%-EPI 1:100,000 20 ML VIAL TP ONE (16:30)
[2019-12-10] MEDS ORDERED: SILVER NITRATE APPLICATOR 1 EA BOX TP SCH (16:30)
--- NOTE | 2019-12-10 18:55 | NUR ---
PLASTIC CNC MACHINE OPERATOR CLOSING NOTES PATIENT RESTING IN BED, OBTUNDED, WITH CODE STATUS DNR, OPENS EYES WITH FACIAL GRIMACING AT TIMES. ON RA, BREATHING EVEN AND UNLABORED, ON VENT WITH NO CHANGES IN VENT SETTINGS, NO SOB NOTED, TELE MONITOR READING SINUS RHYTHM, JAY MIDLINE INTACT AND PATENT, BLOOD TRANSFUSION IN PROGRESS AND TOLERATING WELL, WITH NO ADVERSE REACTIONS NOTED. R CHEST WALL HD CATH PRESENT, G-TUBE FEEDING @45ML/HR, PATENT AND FLUSHING WELL. ALL MEDS TOLERATED WELL. GARRETT CATH IN PLACE WITH YELLOW OUTPUT, BED AT LOWEST POSITION, LOCEKD AND SIDE RAILS UP X2, WITH CALL LIGHT WITH IN REACH, SAFETY PRECAUTIONS IMPLEMENTED WILL ENDORSE DAMEON TO ONCOMING SHIFT
--- NOTE | 2019-12-10 20:00 | NUR ---
DIGITAL MEDIA DESIGNER OPENING NOTE: Patient in bed with eyes open. Patient does not respond to name but responds to touch, is obtunded. Right chest wall HD cath noted. Noted right upper arm midline, patent, dressing dry and intact, no redness or infiltration. Patient receiving blood transfusion and is stable. No adverse reaction to blood transfusion noted. Patient on mechanical ventilator and tolerating settings. No SOB or respiratory distress noted. Greenfield catheter draining clear yellow output. Tube feeding with Nepro at 45mL/hr. Safety precaution is in place, bed is in the lowest level, bed is locked, alarm is on, side rails x2 are up, and call light is within reach. Will continue to monitor.
--- NOTE | 2019-12-10 21:43 | NUR ---
MACHINIST HELPER MARINE NOTE: Blood transfusion complete. Patient in bed sleeping comfortably with no adverse reaction noted. Patient breathing well on mechanical ventilator. No SOB, or acute respiratory distress noted. Vital signs stable BP 120/57, HR 69, Respiration 12, O2Sat 96. Will continue to monitor.
[2019-12-10] MEDS: MICAFUNGIN SODIUM 100 MG in IV NS 0.9% 100 ML IV SCH (22:03)
[2019-12-10] MEDS: LANOLIN/MIN OIL/PETROLAT,WHT 3.5 GM TUBE EACHEYE SCH (22:11)
--- NOTE | 2019-12-10 22:12 | NUR ---
ELECTRIC WELDER NOTE: Later administration of Mycamine due to patient receiving blood transfusion. Called pharmacy and was told it was okay to give after transfusion. Will continue to monitor.
[2019-12-11] VITALS: BP 129/51
[2019-12-11] MEDS: METOPROLOL TARTRATE 25 MG TABLET GT SCH ×4 (00:54→18:17)
[2019-12-11] MEDS: BLOOD SUGAR DIAGNOSTIC 1 EACH STRIP IN SCH ×5 (00:54→23:45)
[2019-12-11] MEDS: INSULIN REGULAR, HUMAN 100 UNIT/ML 3 ML VIAL SQ PRN ×3 (00:57→23:46)
[2019-12-11 04:00] VITALS: BP 121/50
[2019-12-11] MEDS: PANTOPRAZOLE 40 MG/PACK PACK GT SCH (05:33)
--- NOTE | 2019-12-11 06:30 | NUR ---
INVERTEBRATE PALEONTOLOGIST CLOSING NOTE: Patient in bed sleeping comfortably. Patient is breathing well on mechanical ventilator, no SOB, or acute respiratory distress noted. All needs taken care of. Safety precaution is maintained, bed is in the lowest level, bed is locked, alarm is on, side rails x2 are up, and call light is within reach. Will endorse to next shift.
[2019-12-11 07:50] LABS: BASOPHILS # (AUTO) 0.1 /CMM (0.0-0.2); BASOPHILS % (AUTO) 0.7 % (0.0-2.0); EOSINOPHILS % (AUTO) 2.4 % (0.0-6.0); HEMATOCRIT 26 % (33-45); HEMOGLOBIN 8.1 g/dL (11.5-14.8); LYMPHOCYTES # (AUTO) 1.1 /CMM (0.8-4.8); LYMPHOCYTES % (AUTO) 6.2 % (20.0-44.0); MEAN CORPUSCULAR HGB CONC 32 g/dl (31.0-36.0); MEAN CORPUSCULAR VOLUME 97 fL (82-100); MONOCYTES # (AUTO) 2.2 /CMM (0.1-1.30); MONOCYTES % (AUTO) 12.7 % (2.0-12.0); NEUTROPHILS # (AUTO) 13.5 /CMM (1.8-8.9); PLATELET COUNT (AUTO) 330 /CMM (150-450); RED BLOOD CELL COUNT(AUTO) 2.66 MIL/uL (4.0-5.2); WHITE BLOOD COUNT (AUTO) 17.3 K/uL (4.3-11.0)
[2019-12-11 08:00] VITALS: BP 119/81
[2019-12-11 08:03] LABS: CALCIUM, SERUM 10.4 mg/dL (8.5-10.1); CARBON DIOXIDE 24 mmol/L (21-32); CHLORIDE 97 mmol/L (98-107); CREATININE 2.5 mg/dL (0.6-1.3); GLUCOSE 138 mg/dL (74-106); POTASSIUM 4.5 mmol/L (3.5-5.1); SODIUM SERUM 131 mmol/L (136-145)
--- NOTE | 2019-12-11 08:06 | NUR ---
SUPERVISOR MULTIFOCAL LENS OPENING SHIFT NOTES RECEIVED PATIENT IN BED WITH EYES OPEN, PATIENT IS OBTUNDED, PT IS DNR, RT CHEST HD CATH, JAY MIDLINE PATENT AND INTACT WITH NO REDNESS OR INFILTRATION NOTED, PT ON VENT AND TOLERATING WELL, PT IS IN STABLE CONDITION NO SOB NOTED, NO ACUTE RESPIRATORY DISTRESS NOTED, GARRETT IN PLACE DRAINING WELL WITH YELLOW OUTPUT NOTICED, g-TUBE IN PLACE FLUSHING WELL. BED AT LOWEST POSITION AND LOCKED WITH SIDE RAILS UP X3. CALL LIGHT WITH IN REACH, WILL CONTINUE TO MONITOR AND ANTICIPATE PT NEEDS.
[2019-12-11] MEDS: LEVOTHYROXINE SODIUM 75 MCG TABLET GT SCH (08:22)
[2019-12-11 08:25] LABS: UREA NITROGEN, BLOOD 89 mg/dL (7-18)
[2019-12-11] MEDS: DOCUSATE SODIUM LIQ 100 MG/10 ML UDC GT SCH ×2 (09:16→17:52)
[2019-12-11] MEDS: VIT B CMPLX 3/FA/VIT C/BIOTIN 1 TAB TABLET GT SCH (09:16)
[2019-12-11] MEDS: PROSOURCE / PROSTAT (PYXIS) 30 ML UDC GT SCH ×2 (09:17→17:56)
[2019-12-11] MEDS: MIDODRINE HCL (5MG) 5 MG TABLET GT SCH (09:17)
[2019-12-11] MEDS: ACETAMINOPHEN 650 MG/20.3 ML UDC GT SCH (09:18)
[2019-12-11] MEDS: METOCLOPRAMIDE HCL 10 MG TABLET GT SCH ×3 (09:18→17:58)
[2019-12-11] MEDS: ASCORBIC ACID 500 MG TABLET GT SCH ×2 (09:18→17:52)
[2019-12-11] MEDS: LINAGLIPTIN 5 MG TABLET GT SCH (09:18)
[2019-12-11] MEDS: CHLORHEXIDINE GLUCONATE 15 ML UDC MM SCH ×2 (09:19→21:30)
[2019-12-11] MEDS: APIXABAN 2.5 MG TABLET PO SCH ×2 (09:19→17:53)
[2019-12-11] MEDS: CADEXOMER IODINE 40 GM TUBE TP SCH (09:25)
[2019-12-11] MEDS: DAKINS QUARTER STRENGTH (0.125%) 480 ML BOTTLE TOP SCH (09:26)
[2019-12-11] MEDS: INSULIN GLARGINE, 100 UNIT/ML CARTRIDGE SQ SCH ×2 (09:53→21:40)
[2019-12-11] MEDS: NEPRO 1,000 ML BOTTLE GT PRN (10:53)
[2019-12-11 12:54] LABS: EOSINOPHILS % (MANUAL) 2 % (0-4); LYMPHOCYTES % (MANUAL) 5 % (16-48); MONOCYTES % (MANUAL) 9 % (0-11.0); NEUTROPHILS % (MANUAL) 84 (42-76)
[2019-12-11 16:00] VITALS: BP 134/56
--- NOTE | 2019-12-11 19:08 | NUR ---
PATIENT FINANCIAL REPRESENTATIVE CLOSING SHIFT NOTES PATIENT IN BED WITH EYES OPEN, PATIENT IS OBTUNDED, PT IS DNR, RT CHEST HD CATH, NO HD ADMINISTERED TODAY. JAY MIDLINE PATENT AND INTACT WITH NO REDNESS OR INFILTRATION NOTED, WITH ATBX RUNNING AT 100 ML/ HR. PT ON VENT AND TOLERATING VENT SETTINGS WELL, PT IS IN STABLE CONDITION NO SOB NOTED, NO ACUTE RESPIRATORY DISTRESS NOTED, GARRETT IN PLACE DRAINING WELL WITH DARK YELLOW OUTPUT NOTICED, g-TUBE IN PLACE FLUSHING WELL. BED AT LOWEST POSITION AND LOCKED WITH SIDE RAILS UP X3. CALL LIGHT WITH IN REACH, ALL MEDICATIONS ADMINISTERED ORDERED AND TOLERATED WELL. WILL ENDORSE TO BATTERY PARTS ASSEMBLER.
[2019-12-11] MEDS: MICAFUNGIN SODIUM 100 MG in IV NS 0.9% 100 ML IV SCH (19:12)
--- NOTE | 2019-12-11 19:30 | NUR ---
PASTORAL WORKER NOTES PATIENT IN BED, OPENS EYE, OBTUNDED. BREATHING EVEN AND UNLABORED ON MV SHILEY #6, AC 14, TV 500. FIO2 40%, PEEP 5. SHOWS NO SIGNS OF ACUTE RESPIRATORY DISTRESS. NO ACUTE PAIN. FC FLOWING TEA-COLORED URINE. GTUBE RUNNING NEPRO AT 45ML/HR. NO RESIDUALS. IV ON JAY MIDLINE INTACT SHOWS NO SIGNS OF INFILTRATION, NO REDNESS. AND RCW HD CATH INTACT WITH DRESSING. SAFETY PRECAUTIONS IN PLACE. BED IN LOWEST POSITION, LOCKED, AND CALL LIGHT KEPT WITHIN REACH. WILL CONTINUE TO MONITOR.
[2019-12-11 20:00] VITALS: BP 138/87
[2019-12-11] MEDS: LANOLIN/MIN OIL/PETROLAT,WHT 3.5 GM TUBE EACHEYE SCH (21:43)
[2019-12-12] MEDS: METOPROLOL TARTRATE 25 MG TABLET GT SCH ×4 (00:38→17:05)
--- NOTE | 2019-12-12 02:09 | NUR ---
RT NOTE [facility] Pt shows no signs of resp distress or sob. Trach is patent and secured. pt sx'd for mod amt of pale yellow secretions. Vent plugged into red outlet. Ambu bag and emergency spare trach bedside. Alarms are set and audible. Will continue to monitor. Addendum: 12/12/19 at 0211 by ARVIND QUEVEDO RT Amended: Links added.
[2019-12-12] MEDS: PANTOPRAZOLE 40 MG/PACK PACK GT SCH (05:35)
[2019-12-12] MEDS: BLOOD SUGAR DIAGNOSTIC 1 EACH STRIP IN SCH ×4 (06:09→17:16)
[2019-12-12] MEDS: INSULIN REGULAR, HUMAN 100 UNIT/ML 3 ML VIAL SQ PRN (06:09)
--- NOTE | 2019-12-12 06:59 | NUR ---
SHEET METAL SUPERINTENDENT NOTES PATIENT IN BED, OPENS EYE, OBTUNDED. BREATHING EVEN AND UNLABORED ON MV SHILEY #6, AC 14, TV 500. FIO2 40%, PEEP 5. SHOWS NO SIGNS OF ACUTE RESPIRATORY DISTRESS. NO ACUTE PAIN. FC FLOWING TEA-COLORED URINE. TELE MONITOR SR WITH BBB AND AFIB. GTUBE RUNNING NEPRO AT 45ML/HR. NO RESIDUALS. IV ON JAY MIDLINE INTACT SHOWS NO SIGNS OF INFILTRATION, NO REDNESS. AND RCW HD CATH INTACT WITH DRESSING. ALL DUE MEDICATIONS GIVEN. ALL NEEDS ATTENED TO. SAFETY PRECAUTIONS IN PLACE. BED IN LOWEST POSITION, LOCKED, AND CALL LIGHT KEPT WITHIN REACH. WILL ENDORSE TO ONCOMING NURSE
--- NOTE | 2019-12-12 07:30 | NUR ---
RN OPENING NOTES PATIENT IN BED, OPENS EYE, OBTUNDED. BREATHING EVEN AND UNLABORED ON MECHANICAL VENT, SETTINGS ORDERED.NO SIGNS OF ACUTE RESPIRATORY DISTRESS. NO S/S OF PAIN OR DISCOMFORT AT THIS TIME. GARRETT CATH DRAINING TEA-COLORED URINE. GTUBE RUNNING NEPRO AT 45ML/HR. NO RESIDUALS. IV ACCESS INTACT AND PATENT., SHOWS NO SIGNS OF INFILTRATION, NO REDNESS. AND RCW HD CATH INTACT WITH DRESSING. SAFETY PRECAUTIONS IN PLACE. BED IN LOWEST POSITION, LOCKED, AND CALL LIGHT KEPT WITHIN REACH. WILL CONTINUE TO MONITOR.
[2019-12-12 07:53] LABS: CALCIUM, SERUM 10.4 mg/dL (8.5-10.1); CARBON DIOXIDE 25 mmol/L (21-32); CHLORIDE 96 mmol/L (98-107); CREATININE 2.6 mg/dL (0.6-1.3); GLUCOSE 128 mg/dL (74-106); POTASSIUM 4.7 mmol/L (3.5-5.1); SODIUM SERUM 131 mmol/L (136-145)
[2019-12-12 08:00] VITALS: BP 142/69
[2019-12-12 08:01] LABS: UREA NITROGEN, BLOOD 91 mg/dL (7-18)
[2019-12-12] MEDS: ASCORBIC ACID 500 MG TABLET GT SCH ×2 (08:56→17:05)
[2019-12-12] MEDS: VIT B CMPLX 3/FA/VIT C/BIOTIN 1 TAB TABLET GT SCH (08:57)
[2019-12-12] MEDS: DOCUSATE SODIUM LIQ 100 MG/10 ML UDC GT SCH ×2 (08:57→17:05)
[2019-12-12] MEDS: METOCLOPRAMIDE HCL 10 MG TABLET GT SCH ×3 (08:57→17:05)
[2019-12-12] MEDS: LINAGLIPTIN 5 MG TABLET GT SCH (08:57)
[2019-12-12] MEDS: CHLORHEXIDINE GLUCONATE 15 ML UDC MM SCH ×2 (08:57→21:19)
[2019-12-12] MEDS: ACETAMINOPHEN 650 MG/20.3 ML UDC GT SCH (08:57)
[2019-12-12] MEDS: APIXABAN 2.5 MG TABLET PO SCH ×2 (08:58→17:15)
[2019-12-12] MEDS: MIDODRINE HCL (5MG) 5 MG TABLET GT SCH (09:00)
[2019-12-12] MEDS: LEVOTHYROXINE SODIUM 75 MCG TABLET GT SCH (09:08)
[2019-12-12] MEDS: PROSOURCE / PROSTAT (PYXIS) 30 ML UDC GT SCH ×2 (09:11→17:18)
[2019-12-12] MEDS: DAKINS QUARTER STRENGTH (0.125%) 480 ML BOTTLE TOP SCH (09:12)
[2019-12-12] MEDS: CADEXOMER IODINE 40 GM TUBE TP SCH (09:12)
[2019-12-12] MEDS: INSULIN GLARGINE, 100 UNIT/ML CARTRIDGE SQ SCH ×2 (09:25→21:00)
[2019-12-12 16:14] VITALS: BP 119/51
--- NOTE | 2019-12-12 19:28 | NUR ---
rn closing notes patient in stable condition. all needs attended and provided. all due meds given as ordered. turned and repositioned evry 2hrs and as needed. wound treatment rendered as ordered. kept patient safe and comfortable. bed in low/locked position. siderails up. call light in reach. endorsed to KANDACE Small for continuity of care. .
[2019-12-12] MEDS: MICAFUNGIN SODIUM 100 MG in IV NS 0.9% 100 ML IV SCH (19:45)
--- NOTE | 2019-12-12 19:49 | NUR ---
GEOLOGICAL DRAFTER NOTES PATIENT IN BED, OPENS EYE, OBTUNDED. BREATHING EVEN AND UNLABORED ON MV SHILEY #6, AC 14, TV 500. FIO2 40%, PEEP 5. SHOWS NO SIGNS OF ACUTE RESPIRATORY DISTRESS. NO ACUTE PAIN. FC FLOWING TEA-COLORED URINE. GTUBE RUNNING NEPRO AT 45ML/HR. NO RESIDUALS. TELE MONITOR SR WITH BBB AND AFIB. IV ON JAY MIDLINE INTACT SHOWS NO SIGNS OF INFILTRATION, NO REDNESS. AND RCW HD CATH INTACT WITH DRESSING. SAFETY PRECAUTIONS IN PLACE. BED IN LOWEST POSITION, LOCKED, AND CALL LIGHT KEPT WITHIN REACH. WILL CONTINUE TO MONITOR.
[2019-12-12 20:00] VITALS: BP 133/62
[2019-12-12 20:49] VITALS: BP 133/62
[2019-12-12] MEDS: LANOLIN/MIN OIL/PETROLAT,WHT 3.5 GM TUBE EACHEYE SCH (21:19)
[2019-12-12] MEDS: NEPRO 1,000 ML BOTTLE GT PRN (22:28)
--- NOTE | 2019-12-12 23:12 | NUR ---
RT NOTE [facility]. Pt shows no signs of resp distress or sob. Trach is patent and secured. pt sx'd for mod amt of pale yellow secretions. Vent plugged into red outlet. Ambu bag and emergency spare trach bedside. Alarms are set and audible. Will continue to monitor. Addendum: 12/12/19 at 2312 by ARVIND QUEVEDO RT Amended: Links added.
[2019-12-13] MEDS: METOPROLOL TARTRATE 25 MG TABLET GT SCH ×4 (00:18→17:07)
[2019-12-13] MEDS: BLOOD SUGAR DIAGNOSTIC 1 EACH STRIP IN SCH ×4 (00:19→17:17)
[2019-12-13 00:20] VITALS: BP 119/63
[2019-12-13 03:47] VITALS: BP 163/61
[2019-12-13] MEDS: PANTOPRAZOLE 40 MG/PACK PACK GT SCH (05:33)
[2019-12-13] MEDS: INSULIN REGULAR, HUMAN 100 UNIT/ML 3 ML VIAL SQ PRN (05:57)
--- NOTE | 2019-12-13 06:36 | NUR ---
CANDY SUPERVISOR NOTES PATIENT IN BED, OPENS EYE, OBTUNDED. BREATHING EVEN AND UNLABORED ON MV SHILEY #6, AC 14, TV 500. FIO2 40%, PEEP 5. SHOWS NO SIGNS OF ACUTE RESPIRATORY DISTRESS. NO ACUTE PAIN. FC FLOWING TEA-COLORED URINE. GTUBE RUNNING NEPRO AT 45ML/HR. NO RESIDUALS. TELE MONITOR SR WITH BBB AND AFIB. IV ON JAY MIDLINE INTACT SHOWS NO SIGNS OF INFILTRATION, NO REDNESS. AND RCW HD CATH INTACT WITH DRESSING. ALL NEEDS ATTENDED TO. ALL DUE MEDICATIONS GIVEN. SAFETY PRECAUTIONS IN PLACE. BED IN LOWEST POSITION, LOCKED, AND CALL LIGHT KEPT WITHIN REACH. WILL ENDORSE TO ONCOMING NURSE.
--- NOTE | 2019-12-13 07:40 | NUR ---
PROTECTIVE SIGNAL OPERATOR NOTES PATIENT RECEIVED IN BED, OPENS EYE, AND OBTUNDED. BREATHING EVEN AND UNLABORED ON MECHANICAL VENT SHILEY #6, AC 14, TV 500. FIO2 40%, PEEP 5. PATIENT SHOWS NO SIGNS OF ACUTE RESPIRATORY DISTRESS. PATIENT PRESENTS WITH NO SIGNS OF ACUTE PAIN OR DISCOMFORT. GARRETT CATHETER IN PLACE. G-TUBE INTACT AND PATENT INFUSING NEPRO AT 45ML/HR. NO RESIDUALS. ON H[employer] SOCIAL STUDIES TUTOR 71 BBB AND A-FIB. IV ACCESS INTACT AND PATENT ON JAY MIDLINE. RIGHT CHEST WALL HD CATH INTACT WITH DRESSING. SAFETY PRECAUTIONS IN PLACE WITH BED IN LOWEST POSITION, BED LOCKED, BED ALARM ON AND CALL LIGHT KEPT WITHIN REACH. WILL CONTINUE TO MONITOR.
[2019-12-13 07:46] LABS: CALCIUM, SERUM 10.4 mg/dL (8.5-10.1); CARBON DIOXIDE 21 mmol/L (21-32); CHLORIDE 97 mmol/L (98-107); CREATININE 2.6 mg/dL (0.6-1.3); GLUCOSE 147 mg/dL (74-106); POTASSIUM 4.9 mmol/L (3.5-5.1); SODIUM SERUM 129 mmol/L (136-145)
[2019-12-13 08:00] VITALS: BP 147/67
[2019-12-13 08:05] LABS: UREA NITROGEN, BLOOD 96 mg/dL (7-18)
[2019-12-13] MEDS: LEVOTHYROXINE SODIUM 75 MCG TABLET GT SCH (08:15)
[2019-12-13] MEDS: MIDODRINE HCL (5MG) 5 MG TABLET GT SCH (09:00)
[2019-12-13] MEDS: PROSOURCE / PROSTAT (PYXIS) 30 ML UDC GT SCH ×2 (09:04→17:08)
[2019-12-13] MEDS: VIT B CMPLX 3/FA/VIT C/BIOTIN 1 TAB TABLET GT SCH (09:05)
[2019-12-13] MEDS: LINAGLIPTIN 5 MG TABLET GT SCH (09:05)
[2019-12-13] MEDS: ASCORBIC ACID 500 MG TABLET GT SCH ×2 (09:05→17:07)
[2019-12-13] MEDS: ACETAMINOPHEN 650 MG/20.3 ML UDC GT SCH (09:05)
[2019-12-13] MEDS: DOCUSATE SODIUM LIQ 100 MG/10 ML UDC GT SCH ×2 (09:06→17:07)
[2019-12-13] MEDS: METOCLOPRAMIDE HCL 10 MG TABLET GT SCH ×3 (09:06→17:07)
[2019-12-13] MEDS: CHLORHEXIDINE GLUCONATE 15 ML UDC MM SCH ×2 (09:06→21:27)
[2019-12-13] MEDS: APIXABAN 2.5 MG TABLET PO SCH ×2 (09:06→17:11)
[2019-12-13] MEDS: CADEXOMER IODINE 40 GM TUBE TP SCH (09:07)
[2019-12-13] MEDS: DAKINS QUARTER STRENGTH (0.125%) 480 ML BOTTLE TOP SCH (09:07)
[2019-12-13] MEDS: INSULIN GLARGINE, 100 UNIT/ML CARTRIDGE SQ SCH ×2 (09:18→21:32)
--- NOTE | 2019-12-13 09:29 | NUR ---
ADOLESCENT MEDICINE SPECIALIST NOTES HELD MEDICATION MIDODRINE, DUE TO BLOOD PRESSURE 147/67, HEART RATE 69. WILL CONTINUE TO MONITOR PATIENT.
--- NOTE | 2019-12-13 12:22 | NUR ---
AS400 PROGRAMMER NOTES PATIENT'S BLOOD SUGAR 122, PER SLIDING SCALE PROTOCOL, NO INSULIN COVERAGE NEEDED. WILL CONTINUE TO MONITOR PATIENT.
[2019-12-13 16:00] VITALS: BP 126/58
--- NOTE | 2019-12-13 17:17 | NUR ---
LEAN MANAGER NOTES PATIENT'S BLOOD SUGAR 129, PER SLIDING SCALE PROTOCOL, NO INSULIN COVERAGE NEEDED. WILL CONTINUE TO MONITOR PATIENT.
--- NOTE | 2019-12-13 18:47 | NUR ---
CAREER SERVICES MANAGER NOTES PATIENT IN BED, OPENS EYE, AND OBTUNDED. BREATHING EVEN AND UNLABORED ON MECHANICAL VENT SHILEY #6, AC 14, TV 500. FIO2 40%, PEEP 5. PATIENT SHOWS NO SIGNS OF ACUTE RESPIRATORY DISTRESS. PATIENT PRESENTS WITH NO SIGNS OF ACUTE PAIN OR DISCOMFORT. GARRETT CATHETER IN PLACE. G-TUBE INTACT AND PATENT INFUSING NEPRO AT 45ML/HR. NO RESIDUALS NOTED. ON DELINEATOR 70'S A-FIB. IV ACCESS INTACT AND PATENT ON JAY MIDLINE. RIGHT CHEST WALL HD CATH INTACT WITH DRESSING. MET ALL OF PATIENT'S NEEDS. SAFETY PRECAUTIONS IN PLACE WITH BED IN LOWEST POSITION, BED LOCKED, BED ALARM ON, BILATERAL SIDE RAILS UP AND CALL LIGHT KEPT WITHIN REACH. WILL ENDORSE PLAN OF CARE TO UPCOMING RN.
--- NOTE | 2019-12-13 19:42 | NUR ---
MS/TELE/RN RECEIVED PATIENT ON BED APPEAR SLEEPING, APPEAR COMFORTABLE, NO SIGNS OF DISTRESS NOTED, TRACH WITH MECH VENT WORKING WELL, HOB ELEVATED, GT FEEDING INFUSING, WILL MONITOR.
[2019-12-13 20:00] VITALS: BP 117/50
[2019-12-13] MEDS: LANOLIN/MIN OIL/PETROLAT,WHT 3.5 GM TUBE EACHEYE SCH (21:28)
[2019-12-14] VITALS: BP 125/62
[2019-12-14] MEDS: METOPROLOL TARTRATE 25 MG TABLET GT SCH ×4 (00:31→17:30)
[2019-12-14] MEDS: BLOOD SUGAR DIAGNOSTIC 1 EACH STRIP IN SCH ×4 (00:31→17:28)
[2019-12-14] MEDS: NEPRO 1,000 ML BOTTLE GT PRN ×2 (00:37→21:22)
--- NOTE | 2019-12-14 03:44 | NUR ---
RT NOTE [facility]. Pt shows no signs of resp distress or sob. Trach is patent and secured. pt sx'd for mod amt of pale yellow secretions. Vent plugged into red outlet. Ambu bag and emergency spare trach bedside. Alarms are set and audible. Will continue to monitor. Addendum: 12/14/19 at 0345 by ARVIND QUEVEDO RT Amended: Links added.
[2019-12-14 04:00] VITALS: BP 113/53
[2019-12-14] MEDS: INSULIN REGULAR, HUMAN 100 UNIT/ML 3 ML VIAL SQ PRN ×2 (06:34→12:27)
[2019-12-14] MEDS: PANTOPRAZOLE 40 MG/PACK PACK GT SCH (06:34)
--- NOTE | 2019-12-14 06:55 | NUR ---
MS/TELE/RN PATIENT APPEAR SLEEPING, APPEAR COMFORTABLE, NO DISTRESS NOTED, HOB ELEVATED, GT FEEDING INFUSING, ALL NEEDS ATTENDED AT THIS TIME, WILL CONTINUE TO MONITOR.
--- NOTE | 2019-12-14 07:28 | NUR ---
RN NOTES RECEIVED PATIENT IN BED RESTING COMFORTABLY IN MODERATE HIGH BACK REST, DNR, ORDERED BY DR. WOLFE, OPENS EYE, AND OBTUNDED. ON MECHANICAL VENT SHILEY #6, AC 14, TV 500. FIO2 40%, PEEP 5. NO SIGNS OF ACUTE RESPIRATORY DISTRESS AT THIS TIME. GARRETT CATHETER IN PLACE. G-TUBE INTACT AND PATENT INFUSING NEPRO AT 45ML/HR. NO RESIDUALS NOTED. IV ACCESS INTACT AND PATENT ON JAY MIDLINE. RIGHT CHEST WALL HD CATH INTACT WITH DRESSING. SAFETY PRECAUTIONS IN PLACE WITH BED IN LOWEST POSITION, BED LOCKED, BED ALARM ON, BILATERAL SIDE RAILS UP AND CALL LIGHT KEPT WITHIN REACH. WILL CONTINUE TO MONITOR.
[2019-12-14 08:00] VITALS: BP 119/56
[2019-12-14] MEDS: CHLORHEXIDINE GLUCONATE 15 ML UDC MM SCH ×2 (08:56→20:36)
[2019-12-14] MEDS: LEVOTHYROXINE SODIUM 75 MCG TABLET GT SCH (08:56)
[2019-12-14] MEDS: ACETAMINOPHEN 650 MG/20.3 ML UDC GT SCH (08:57)
[2019-12-14] MEDS: APIXABAN 2.5 MG TABLET PO SCH ×2 (08:59→16:13)
[2019-12-14] MEDS: VIT B CMPLX 3/FA/VIT C/BIOTIN 1 TAB TABLET GT SCH (09:00)
[2019-12-14] MEDS: DOCUSATE SODIUM LIQ 100 MG/10 ML UDC GT SCH ×2 (09:00→16:06)
[2019-12-14] MEDS: ASCORBIC ACID 500 MG TABLET GT SCH ×2 (09:01→16:13)
[2019-12-14] MEDS: MIDODRINE HCL (5MG) 5 MG TABLET GT SCH (09:01)
[2019-12-14] MEDS: LINAGLIPTIN 5 MG TABLET GT SCH (09:02)
[2019-12-14] MEDS: METOCLOPRAMIDE HCL 10 MG TABLET GT SCH ×3 (09:02→16:13)
[2019-12-14] MEDS: PROSOURCE / PROSTAT (PYXIS) 30 ML UDC GT SCH ×2 (09:03→16:13)
[2019-12-14] MEDS: DAKINS QUARTER STRENGTH (0.125%) 480 ML BOTTLE TOP SCH (09:06)
[2019-12-14] MEDS: CADEXOMER IODINE 40 GM TUBE TP SCH (09:06)
[2019-12-14] MEDS: INSULIN GLARGINE, 100 UNIT/ML CARTRIDGE SQ SCH ×2 (09:47→20:38)
--- NOTE | 2019-12-14 13:00 | NUR ---
RN NOTES SEEN AND EXAMINED BY YOLIE MACEDO AT THIS TIME, DR. WOLFE SPOKE TO AND DAUGHTER AT BEDSIDE. WILL CONTINUE TO MONITOR.
[2019-12-14 16:00] VITALS: BP 122/62
--- NOTE | 2019-12-14 18:47 | NUR ---
RN NOTES PATIENT IN BED RESTING COMFORTABLY IN MODERATE HIGH BACK REST, DNR, ORDERED BY DR. WOLFE, OPENS EYE, AND OBTUNDED. ON MECHANICAL VENT SHILEY #6, AC 14, TV 500. FIO2 40%, PEEP 5. NO SIGNS OF ACUTE RESPIRATORY DISTRESS THROUGHOUT THE SHIFT. GARRETT CATHETER IN PLACE. G-TUBE INTACT AND PATENT INFUSING NEPRO AT 45ML/HR. NO RESIDUALS NOTED. IV ACCESS INTACT AND PATENT ON JAY MIDLINE. RIGHT CHEST WALL HD CATH INTACT WITH DRESSING. SAFETY PRECAUTIONS IN PLACE WITH BED IN LOWEST POSITION, BED LOCKED, BED ALARM ON, BILATERAL SIDE RAILS UP AND CALL LIGHT KEPT WITHIN REACH. WILL ENDORSE TO SOLAR INSTALLATION FOREMAN NURSE FOR DAMEON.
--- NOTE | 2019-12-14 19:20 | NUR ---
MS RN OPENING NOTES PATIENT OBTUNDED AND VENT DEPENDENT. TOLERATING VENT SETTINGS WELL; CONTINUOUS PULSE OX READING 98%; NO S/S OF ACUTE RESPIRATORY DISTRESS; BREATHING IS EVEN AND UNLABORED. NO S/S OF PAIN NOTED. GTUBE FEEDING WITH NEPRO PRESENT RUNNING AT 45 ML/HR; TOLERATING WELL. GARRETT CATH PRESENT AND DRAINING WELL; CLEAR YELLOW URINE PRESENT. RIGHT UPPER ARM MIDLINE PRESENT; INTACT & PATENT, HEP LOCKED. RIGHT CHEST WALL HD CATH PRESENT; DRESSING DRY AND INTACT. SAFETY MEASURES IN PLACE AND PATIENT'S NEEDS MET. BED LOCKED, ALARM ON, HOB ELEVATED, SIDE RAILS X3, CALL LIGHT WITHIN REACH. WILL CONTINUE TO MONITOR.
[2019-12-14 20:00] VITALS: BP 124/58
[2019-12-14] MEDS: LANOLIN/MIN OIL/PETROLAT,WHT 3.5 GM TUBE EACHEYE SCH (21:36)
[2019-12-15] MEDS: BLOOD SUGAR DIAGNOSTIC 1 EACH STRIP IN SCH ×3 (00:03→11:18)
[2019-12-15] MEDS: METOPROLOL TARTRATE 25 MG TABLET GT SCH ×3 (00:05→11:45)
[2019-12-15] MEDS: PANTOPRAZOLE 40 MG/PACK PACK GT SCH (06:15)
[2019-12-15] MEDS: INSULIN REGULAR, HUMAN 100 UNIT/ML 3 ML VIAL SQ PRN (06:18)
[2019-12-15] MEDS: LEVOTHYROXINE SODIUM 75 MCG TABLET GT SCH (06:30)
--- NOTE | 2019-12-15 07:20 | NUR ---
MS RN CLOSING NOTES PATIENT OBTUNDED AND VENT DEPENDENT. TOLERATING VENT SETTINGS WELL. NO S/S OF ACUTE RESPIRATORY DISTRESS; BREATHING IS EVEN AND UNLABORED. NO S/S OF PAIN NOTED. GTUBE FEEDING WITH NEPRO RUNNING AT 45 ML/HR; TOLERATING WELL. GARRETT CATH REMAINS INTACT AND DRAINING WELL; CLEAR YELLOW URINE PRESENT. RIGHT UPPER ARM MIDLINE PRESENT; INTACT & PATENT, HEP LOCKED. RIGHT CHEST WALL HD CATH PRESENT; DRESSING DRY AND INTACT. SAFETY MEASURES IN PLACE AND PATIENT'S NEEDS MET. BED LOCKED, ALARM ON, HOB ELEVATED, SIDE RAILS X3, CALL LIGHT WITHIN REACH. ENDORSED TO DAY SHIFT RN PLAN OF CARE.
[2019-12-15 08:00] VITALS: BP 138/60
[2019-12-15] MEDS: CHLORHEXIDINE GLUCONATE 15 ML UDC MM SCH (08:35)
[2019-12-15] MEDS: DOCUSATE SODIUM LIQ 100 MG/10 ML UDC GT SCH ×2 (08:35→17:00)
[2019-12-15] MEDS: LINAGLIPTIN 5 MG TABLET GT SCH (08:36)
[2019-12-15] MEDS: MIDODRINE HCL (5MG) 5 MG TABLET GT SCH (08:36)
[2019-12-15] MEDS: PROSOURCE / PROSTAT (PYXIS) 30 ML UDC GT SCH ×2 (08:36→17:00)
[2019-12-15] MEDS: ASCORBIC ACID 500 MG TABLET GT SCH ×2 (08:36→17:00)
[2019-12-15] MEDS: VIT B CMPLX 3/FA/VIT C/BIOTIN 1 TAB TABLET GT SCH (08:36)
[2019-12-15] MEDS: ACETAMINOPHEN 650 MG/20.3 ML UDC GT SCH (08:36)
[2019-12-15] MEDS: METOCLOPRAMIDE HCL 10 MG TABLET GT SCH ×3 (08:36→17:00)
[2019-12-15] MEDS: INSULIN GLARGINE, 100 UNIT/ML CARTRIDGE SQ SCH (08:40)
[2019-12-15] MEDS: APIXABAN 2.5 MG TABLET PO SCH ×2 (08:41→17:00)
[2019-12-15] MEDS: DAKINS QUARTER STRENGTH (0.125%) 480 ML BOTTLE TOP SCH (08:42)
[2019-12-15] MEDS: CADEXOMER IODINE 40 GM TUBE TP SCH (08:42)
[2019-12-15 11:45] VITALS: BP 130/60
--- NOTE | 2019-12-15 15:30 | NUR ---
RN NOTES FAMILY AT BEDSIDE, AGREED FOR HOSPICE CARE, CONSENT SIGNED, DR. WOLFE AWARE AND SPOKE TO THE FAMILY.
--- NOTE | 2019-12-15 15:40 | NUR ---
RN NOTES HOSPICE NURSE AT BEDSIDE TALKING TO THE FAMILY.
--- NOTE | 2019-12-15 16:18 | NUR ---
FOUNDER AND CHIEF TECHNICAL OFFICER NOTES PATIENT IS DISCHARGE TO HOSPICE CARE. FAMILY AT BED SIDE, FAMILY REFUSED PICTURES OF THE PATIENT AND NOTED WITH MULTIPLE SKIN ISSUES, MD AWARE OF DISCHARGE, CHARGE NURSE AWARE OF DISCHARGED.
== END 2019-12-15 17:12 | disposition hospice, inpatient (51) | DRG 853 ==
LOC: ER 15:36 → ICU 18:15 → TELE 12-03 18:16 → MED 12-14 11:30
PROVIDERS: ADMIT Nurse Practitioner Acute Care; ATTEND Nurse Practitioner Acute Care
PROC: 5A1955Z Respiratory Ventilation, Greater than 96 Consecutive Hours (ICD-10-PCS; principal; 2019-11-29)
PROC: 5A1D70Z Performance of Urinary Filtration, Intermittent, Less than 6 Hours Per Day (ICD-10-PCS; 2019-11-30)
PROC: 0JBN0ZZ Excision of Right Lower Leg Subcutaneous Tissue and Fascia, Open Approach (ICD-10-PCS; 2019-12-04)
PROC: 0KBP0ZZ Excision of Left Hip Muscle, Open Approach (ICD-10-PCS; 2019-12-05)
PROC: 0KBN0ZZ Excision of Right Hip Muscle, Open Approach (ICD-10-PCS; 2019-12-05)
PROC: 05HY33Z Insertion of Infusion Device into Upper Vein, Percutaneous Approach (ICD-10-PCS; 2019-12-07)
PROC: 30233N1 Transfusion of Nonautologous Red Blood Cells into Peripheral Vein, Percutaneous Approach (ICD-10-PCS; 2019-12-10)
PROC: 0KBP0ZZ Excision of Left Hip Muscle, Open Approach (ICD-10-PCS; 2019-12-12)
PROC: 0KBN0ZZ Excision of Right Hip Muscle, Open Approach (ICD-10-PCS; 2019-12-12)
DX: A41.9 Sepsis, unspecified organism (principal); L89.154 Pressure ulcer of sacral region, stage 4; J96.21 Acute and chronic respiratory failure with hypoxia; N18.6 End stage renal disease; I21.A1 Myocardial infarction type 2; J96.22 Acute and chronic respiratory failure with hypercapnia; I50.33 Acute on chronic diastolic (congestive) heart failure; J18.9 Pneumonia, unspecified organism; E44.0 Moderate protein-calorie malnutrition; I13.2 Hypertensive heart and chronic kidney disease with heart failure and with stage 5 chronic kidney disease, or end stage renal disease; D68.69 Other thrombophilia; L03.116 Cellulitis of left lower limb; L03.115 Cellulitis of right lower limb; Z99.11 Dependence on respirator [ventilator] status; N39.0 Urinary tract infection, site not specified; K76.6 Portal hypertension; G93.1 Anoxic brain damage, not elsewhere classified; E11.52 Type 2 diabetes mellitus with diabetic peripheral angiopathy with gangrene; I96 Gangrene, not elsewhere classified; I47.1 Supraventricular tachycardia; K92.2 Gastrointestinal hemorrhage, unspecified; L97.919 Non-pressure chronic ulcer of unspecified part of right lower leg with unspecified severity; I48.91 Unspecified atrial fibrillation; Z99.2 Dependence on renal dialysis; Z93.1 Gastrostomy status; Z93.0 Tracheostomy status; Z87.820 Personal history of traumatic brain injury; E88.09 Other disorders of plasma-protein metabolism, not elsewhere classified; E11.22 Type 2 diabetes mellitus with diabetic chronic kidney disease; D63.8 Anemia in other chronic diseases classified elsewhere; I27.20 Pulmonary hypertension, unspecified; S41.112A Laceration without foreign body of left upper arm, initial encounter; X58.XXXA Exposure to other specified factors, initial encounter; Y93.9 Activity, unspecified; Y92.129 Unspecified place in nursing home as the place of occurrence of the external cause; I87.2 Venous insufficiency (chronic) (peripheral); I25.2 Old myocardial infarction; E87.6 Hypokalemia; E03.9 Hypothyroidism, unspecified; E78.5 Hyperlipidemia, unspecified; L89.150 Pressure ulcer of sacral region, unstageable; Z51.5 Encounter for palliative care; Z79.01 Long term (current) use of anticoagulants; R13.10 Dysphagia, unspecified; L30.9 Dermatitis, unspecified; B96.5 Pseudomonas (aeruginosa) (mallei) (pseudomallei) as the cause of diseases classified elsewhere; Z79.4 Long term (current) use of insulin; S51.812A Laceration without foreign body of left forearm, initial encounter; Z66 Do not resuscitate
CPT/HCPCS: 31720; 36410; 36415; 71045-TC; 80048-TC; 80053-TC; 80076-TC; 80202-TC; 81000-TC; 82728-TC; 82962-TC; 83540-TC; 83605-TC; 83735-TC; 83880; 84100-TC; 84439-TC; 84484-TC; 85025-TC; 85730-TC; 86706; 86850-TC; 87040-TC; 87070-TC; 87081-TC; 87086-TC; 87186-TC; 87340; 90935-TC; 93307-TC; 93970-TC; 94002-TC; 94003-TC; 94640-TC; 94760-TC; 94762-TC; 94799-TC; A4216; A4217; A4623; A6253; A6403; A7526; C9113; G0378; J0282; J0885; J1160; J1815; J1940; J2185; J2248; J2543; J2916; J3260; J3370; J3490; J7030; J7050; J7060; J8597; P9016-BL; P9047; U0003-CS

== ENCOUNTER 2019-12-15 17:32 | Inpatient (IN) | payer OTHER ==
[~2019-12-15] VITALS: Ht 175.3 cm; Wt 118.8 kg
[2019-12-15 16:00] VITALS: BP 149/51
[~2019-12-15 17:32] MED LIST: ACET650S26 GT; AMIN30LI27 GT; AMIO400T5 GT; ARGI1POW13 GT; ASCO-352 GT; BISA10SU11 RC; CHLO473M5 MM; CLOT15CR27 TP; DOCU50LI GT; EPOE4000 SQ; FOLI0.8T23 GT; HYDR-4384 GT; INSU100V11 SQ; INSU100V7 SQ; LANO3.5O3 EACHEYE; LEVO150T8 GT; LINA5TAB GT; METO-295 GT; METO25TA20 GT; MIDO10TA GT; MUPI22OI2 TP; NUT.237L67 GT; NYST15PO4 TP; PANT40TA2 GT; SILD20TA2 GT; ZINC1CAP2 GT
--- NOTE | 2019-12-15 18:15 | NUR ---
RN ADMITTING NOTES ADMITTED A 79 YEARS OLD, FEMALE UNDER DEDICATED HOSPICE, OBTUNDED, PATIENT IS ON A TRACH AND VENT, NOTED WITH JAY MIDLINE, AND RCW HD CATH ACCESS. NO SIGNS OF DISTRESS NOTED AT THIS TIME. SAFETY MEASURES IN PLACE, WILL ENDORSE TO BLOCK TRIMMER NURSE FOR DAMEON.
[2019-12-15] MEDS ORDERED: ONDANSETRON HCL/PF 4 MG/2 ML VIAL IVP PRN (18:30)
[2019-12-15] MEDS ORDERED: IV NS 0.9% 1,000 ML IV PRN (18:30)
[2019-12-15] MEDS ORDERED: SCOPOLAMINE HBR 1 EA PATCH.TD72 TD SCH (19:00)
--- NOTE | 2019-12-15 19:20 | NUR ---
sTARTED THE MORPHINE GTT AT 2MG HR ORDERED MOVING ARMS EYES CLOSED RESP 22 MIN
[2019-12-15] MEDS: MORPHINE SULFATE PF DRIP 250 MG in IV D5W 240 ML IV PRN ×2 (19:24→23:36)
[2019-12-15 20:00] VITALS: BP 133/54
[2019-12-15] MEDS ORDERED: LORAZEPAM INJ 2 MG/ML VIAL IV PRN (20:30)
--- NOTE | 2019-12-15 21:15 | NUR ---
aTIVAN iv GIVEN SLOWLY ORDERED DAUGHTER CALLED AND MADE AWARE THAT WE WOULD BE READY TO START THE EXTUBATION WITHIN THE HOUR AND I WOULD KEEP HER UPDATED ON HER MOM'S CONDITION. i CALLED [facility] AND EXPLAINED TO ARVIND THAT IN 15 MINUTES I WOULD MET HIM IN THE ROOM AND WE NEEDED TO EXTUBATE MS. HER
--- NOTE | 2019-12-15 21:50 | NUR ---
RT NOTE PT DISCONNECTED FROM [facility] VENT AND PLACED TMASK @ 3LPM PER MD ORDERS. RN AND TYPE BAR AND SEGMENT ASSEMBLER AT BEDSIDE. WILL CONTINUE TO MONITOR. Addendum: 12/15/19 at 2200 by ARVIND QUEVEDO RT Amended: Links added.
--- NOTE | 2019-12-16 | NUR ---
INCREASED THE MORPHINE TO 4 MG
[2019-12-16] MEDS: MORPHINE SULFATE PF DRIP 250 MG in IV D5W 240 ML IV PRN ×8 (00:39→08:15)
[2019-12-16] MEDS ORDERED: KEY,NONCONTROL,TO KEEP IN PYXI 1 EA MC ONE ×2 (08:15→14:05)
--- NOTE | 2019-12-16 08:15 | NUR ---
rn notes changed morphine bag at this time increase infusion 20 mg/hr drip, cosigned with RN Alcira.
--- NOTE | 2019-12-16 11:31 | NUR ---
rn notes patient HR-83, o2-94 on trachea tubing , R-5, morphine drip 20 mg/hr, comfort care measure provided assist turn and reposition q 2 hr.
[2019-12-16 12:03] VITALS: BP 75/42
--- NOTE | 2019-12-16 12:30 | NUR ---
RN DOCUMENTED AND TIME OF 12/16/19 1230PM IN PATIENT ROOM WILL PROVIDED COMFORT MEASURE OBSERVED PATIENT WITH DECREASING RESPIRATION AND WITH LAST BREATH TAKEN. PATIENT UNRESPONSIVE, NO RESPIRATION NO HEARTH BEATH, NO PULSE, NO BREATH SOUNDS AUSCULTATION. PATIENT DNR/DNI ON HOSPICE DEDICATED CARE. WAS PRONOUNCED BY CHARGE NURSE RANGEL JERONIMO. NOTIFIED [facility] COUNSELOR, JAYY ALEJANDRO, [facility], AND [facility] CARE DONE. PATIENT HAS NO BELONGING. DEDICATED HOSPICE WILL FOLLOW TO NOTIFY FAMILY, AND MORTUARY TO COKE CRANE OPERATOR.
--- NOTE | 2019-12-16 12:40 | NUR ---
RN NOTES [facility] CASE # IS [id number].
== END 2019-12-16 12:15 | disposition expired | DRG 871 ==
LOC: HOSPICE 17:32
PROVIDERS: ADMIT Nurse Practitioner Acute Care; ATTEND Nurse Practitioner Acute Care
DX: A41.9 Sepsis, unspecified organism (principal); J96.21 Acute and chronic respiratory failure with hypoxia; I50.33 Acute on chronic diastolic (congestive) heart failure; N18.6 End stage renal disease; E44.0 Moderate protein-calorie malnutrition; D68.69 Other thrombophilia; K92.2 Gastrointestinal hemorrhage, unspecified; I13.2 Hypertensive heart and chronic kidney disease with heart failure and with stage 5 chronic kidney disease, or end stage renal disease; Z99.11 Dependence on respirator [ventilator] status; R13.10 Dysphagia, unspecified; I48.91 Unspecified atrial fibrillation; Z93.1 Gastrostomy status; Z99.2 Dependence on renal dialysis; E78.5 Hyperlipidemia, unspecified; E03.9 Hypothyroidism, unspecified; E11.22 Type 2 diabetes mellitus with diabetic chronic kidney disease; Z51.5 Encounter for palliative care; Z93.0 Tracheostomy status; E88.09 Other disorders of plasma-protein metabolism, not elsewhere classified; Z68.38 Body mass index [BMI] 38.0-38.9, adult; L89.159 Pressure ulcer of sacral region, unspecified stage; Z79.4 Long term (current) use of insulin; I46.8 Cardiac arrest due to other underlying condition
CPT/HCPCS: 94799-TC; G0378; J2060; J2274; J7030; J7060